=== PATIENT | male | born 1935 | race Caucasian/White ===

== ENCOUNTER 2017-09-09 14:58 | Emergency (ER) | payer MEDICARE, BC, OTHER ==
[2017-09-09 15:48] LABS: BASO % 0.4 % (0-6); EOS % 1.4 % (0-6); GRAN % 70.1 % (47-80); HEMATOCRIT 46.6 % (42.0-52.0); HEMOGLOBIN 15.4 gm/dl (14.0-18.0); LYMPH % 19.1 % (16-45); MEAN CELL VOLUME 89.8 fl (81-97); MEAN CORPUSCULAR HEMOGLOBIN 29.7 pg (27-33); MEAN PLATELET VOLUME 9.8 fl (7.4-10.4); PLATELET COUNT 221 K/uL (130-400); RED BLOOD COUNT 5.19 M/uL (4.40-5.70); RED CELL DISTRIBUTION WIDTH 14.2 % (11.5-14.5); WHITE BLOOD COUNT W/O DIFF 7.4 K/uL (4.2-12.2)
[2017-09-09 16:09] LABS: ALBUMIN 3.8 g/dL (4.0-5.0); ALKALINE PHOSPHATASE 56 U/L (40-129); ALT/SGPT 15 U/L (<41); AST/SGOT 17 U/L (10.0-50.0); BLOOD UREA NITROGEN 13 mg/dL (8-23); CREATININE 1.4 mg/dL (0.7-1.2); EST GLOMERULAR FILTRATION RATE 52 mL/min; GLUCOSE,RANDOM 97 mg/dL (74-109); LIPASE 66 U/L (13-60); TOTAL PROTEIN 6.9 g/dL (6.6-8.7)
[2017-09-09 16:12] LABS: BILIRUBIN,DIRECT < 0.2 mg/dL (0-0.3)
[2017-09-09 16:47] LABS: URINE APPEARANCE CLEAR; URINE BILIRUBIN NEGATIVE (NEGATIVE); URINE BLOOD NEGATIVE (NEGATIVE); URINE COLOR YELLOW; URINE GLUCOSE (UA) NEGATIVE (NEGATIVE); URINE KETONE NEGATIVE (NEGATIVE); URINE LEUKOCYTE ESTERASE NEGATIVE (NEGATIVE); URINE NITRITE NEGATIVE (NEGATIVE); URINE PROTEIN NEGATIVE (NEGATIVE); URINE UROBILINOGEN 0.2 E.U./dL (0.20 - 1.00)
--- NOTE | 2017-09-09 17:19 | Emergency Department Record ---
History of Present Illness - General Chief Complaint: Abdominal Pain Stated Complaint: LLQ ABDOMINAL PAIN Time Seen by Provider: 09/09/17 15:33 Source: Patient Mode of Arrival: Ambulatory Limitations: No limitations - History of Present Illness Initial Comments: pt has l flank pain and luq pain. it comes and goes. no n/v/d. pt is having hard stools. 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 he is concerned that he might have cancer again or kidney stones. . he states the pain has been coming and going for 6 months but has gotten much worse the last few days. MD Complaint: Abdominal pain, Flank pain Onset/Timin -: Days(s) Location: LLQ Radiation: L flank Severity: Mild Consistency: Intermittent Worsens With: Movement Associated Symptoms: Constipation - Related Data Home Medications Medication Instructions Recorded Confirmed Last Taken Cholecalciferol (Vitamin D3) 5,000 unit PO DAILY 09/09/17 09/09/17 1 Day Ago [Vitamin D3] ~09/08/17 Allergies Allergy/AdvReac Type Severity Reaction Status Date / Time Sulfa (Sulfonamide Allergy Severe ANAPHYLAXIS Verified 09/09/17 15:10 Antibiotics) sulfacetamide Allergy Unknown HIVES Verified 09/09/17 15:10 atorvastatin calcium Allergy PT UNSURE Verified 09/09/17 15:10 [From Lipitor] OF REACTION colesevelam HCl Allergy SWELLING Verified 09/09/17 15:10 [From WelChol] OF THE FACE ezetimibe [From Zetia] Allergy pt unsure Verified 09/09/17 15:10 of reaction fenofibrate nanocrystallized Allergy PT UNSURE Verified 09/09/17 15:10 [From Tricor] OF REACTION fenofibrate,micronized Allergy PT UNSURE Verified 09/09/17 15:10 [From Tricor] OF REACTION gemfibrozil [From Lopid] Allergy PT UNSURE Verified 09/09/17 15:10 OF REACTION Penicillins Allergy HIVES Verified 09/09/17 15:10 Travel Screening - Travel/Exposure Within Last 30 Days Have you traveled within the last 30 days?: No - Travel/Exposure Within Last Year Have you traveled outside the [place] in the last year?: No - Additonal Travel Details Have you been exposed to anyone with a communicable illness?: No - Travel Symptoms Symptom Screening: None Review of Systems Reviewed: No additional complaints except as noted below Constitutional: Reports: As per HPI. Denies: Chills, Fever, Malaise, Night sweats, Weakness, Weight change Eyes: Reports: As per HPI. Denies: Eye discharge, Eye pain, Photophobia, Vision change ENT: Reports: As per HPI. Denies: Congestion, Dental pain, Ear pain, Epistaxis , Hearing loss, Throat pain Respiratory: Reports: As per HPI. Denies: Cough, Dyspnea, Hemoptysis, Stridor, Wheezes Cardiovascular: Reports: As per HPI. Denies: Arrhythmia, Chest pain, Dyspnea on exertion, Edema, Murmurs, Orthopnea, Palpitations, Paroxysmal nocturnal dyspnea, Rheumatic Fever, Syncope Endocrine: Reports: As per HPI. Denies: Fatigue, Heat or cold intolerance, Polydipsia, Polyuria Gastrointestinal: Reports: As per HPI. Denies: Abdominal pain, Constipation, Diarrhea, Hematemesis, Hematochezia, Melena, Nausea, Vomiting Genitourinary: Reports: As per HPI. Denies: Dysuria, Frequency, Hematuria, Incontinence, Retention, Testicular pain, Testicular mass, Urgency Musculoskeletal: Reports: As per HPI. Denies: Arthralgia, Back pain, Gout, Joint swelling, Myalgia, Neck pain Skin: Reports: As per HPI. Denies: Bruising, Change in color, Change in hair/ nails, Lesions, Pruritus, Rash Neurological: Reports: As per HPI. Denies: Abnormal gait, Confusion, Headache, Numbness, Paresthesias, Seizure, Tingling, Tremors, Vertigo, Weakness Psychiatric: Reports: As per HPI. Denies: Anxiety, Auditory hallucinations, Depression, Homicidal thoughts, Suicidal thoughts, Visual hallucinations Hematological/Lymphatic: Reports: As per HPI. Denies: Anemia, Blood Clots, Easy bleeding, Easy bruising, Swollen glands Past Medical History - SOCIAL HISTORY Smoking Status: Former smoker Alcohol Use: None Drug Use: None - RESPIRATORY Hx Respiratory Disorders: No - CARDIOVASCULAR Hx Cardio Disorders: Yes Hx Cardiac Cath: Yes (3 stents) Hx Heart Attack: Yes Hx Hypertension: Yes Hx Coronary Stent: Yes - NEURO Hx Neuro Disorders: No - GI Hx GI Disorders: Yes Hx of Polyps: Yes - Hx Genitourinary Disorders: Yes Hx Prostate Problems: Yes (BPH) Hx Renal Disease: Yes (hx of renal cell carcinoma) - ENDOCRINE Hx Endocrine Disorders: No - MUSCULOSKELETAL Hx Musculoskeletal Disorders: No - PSYCH Hx Psych Problems: No - HEMATOLOGY/ONCOLOGY Hx Hematology/Oncology Disorders: Yes Hx Cancer: Yes (Renal cell carcinoma) Family Medical History Any Significant Family History?: Yes Physical Exam - General General Appearance: Alert, Oriented x3, Cooperative, Mild distress - Head Head exam: Normal inspection - Eye Eye exam: Normal appearance, PERRL, EOMI Pupils: Normal accommodation - ENT ENT exam: Normal exam, Mucous membranes moist, Normal external ear exam, Normal orophraynx Ear exam: Normal external inspection. negative: External canal tenderness Nasal Exam: Normal inspection. negative: Discharge, Sinus tenderness Mouth exam: Normal external inspection, Tongue normal Teeth exam: Normal inspection. negative: Dental caries Throat exam: Normal inspection. negative: Tonsillar erythema, Tonsillar exudate - Neck Neck exam: Normal inspection, Full ROM. negative: Tenderness - Respiratory Respiratory exam: Normal lung sounds bilaterally. negative: Respiratory distress - Cardiovascular Cardiovascular Exam: Regular rate, Normal rhythm, Normal heart sounds - GI/Abdominal GI/Abdominal exam: Soft, Normal bowel sounds, Tenderness - Rectal Rectal exam: Deferred - exam: Deferred - Extremities Extremities exam: Normal inspection, Full ROM, Normal capillary refill. negative: Tenderness - Back Back exam: Reports: Normal inspection, CVA tenderness (L), Full ROM. Denies: Muscle spasm, Rash noted, Tenderness - Neurological Neurological exam: Alert, CN II-XII intact, Normal gait, Oriented X3 - Psychiatric Psychiatric exam: Normal affect, Normal mood - Skin Skin exam: Dry, Intact, Normal color, Warm Course Vital Signs 09/09/17 09/09/17 14:59 17:09 Temperature 97.8 F Pulse Rate 92 H Pulse Rate [ 76 Pulse Ox Probe] Respiratory 16 16 Rate Blood Pressure 143/90 Blood Pressure 130/86 [Left Arm] Pulse Ox 98 97 - Reevaluation(s) Reevaluation #1: 09/09/17 17:19 pts pain is improved Medical Decision Making - Lab Data Result diagrams: 09/09/17 15:42 09/09/17 15:42 Lab Results 09/09/17 09/09/17 09/09/17 Range/Units 15:42 15:42 16:35 WBC 7.4 (4.2-12.2) K/uL RBC 5.19 (4.40-5.70) M/uL Hgb 15.4 (14.0-18.0) gm/dl Hct 46.6 (42.0-52.0) % MCV 89.8 (81-97) fl MCH 29.7 (27-33) pg MCHC 33.0 (32-36) g/dl RDW 14.2 (11.5-14.5) % Plt Count 221 (130-400) K/uL MPV 9.8 (7.4-10.4) fl Gran % 70.1 (47-80) % Lymphocytes % 19.1 (16-45) % Monocytes % 9.0 (0-9) % Eosinophils % 1.4 (0-6) % Basophils % 0.4 (0-6) % Sodium 139 (136-145) mmol/L Potassium 4.1 (3.4-4.5) mmol/L Chloride 102 (98-107) mmol/L Carbon Dioxide 24.0 (22-29) mmol/L Anion Gap 13.0 (7-16) BUN 13 (8-23) mg/dL Creatinine 1.4 H (0.7-1.2) mg/dL Estimated GFR 52 mL/min Random Glucose 97 (74-109) mg/dL Calcium 9.1 (8.8-10.2) mg/dL Total Bilirubin 0.40 (0.2-1.0) mg/dL Direct Bilirubin < 0.2 (0-0.3) mg/dL AST 17 (10.0-50.0) U/L ALT 15 (<41) U/L Alkaline Phosphatase 56 (40-129) U/L Total Protein 6.9 (6.6-8.7) g/dL Albumin 3.8 L (4.0-5.0) g/dL Lipase 66 H (13-60) U/L Urine Color Yellow Urine Appearance Clear Urine pH 6.0 (5.0-8.0) Ur Specific [place] 1.010 (1.002-1.030) Urine Protein Negative (NEGATIVE) Urine Glucose (UA) Negative (NEGATIVE) Urine Ketones Negative (NEGATIVE) Urine Blood Negative (NEGATIVE) Urine Nitrite Negative (NEGATIVE) Urine Bilirubin Negative (NEGATIVE) Urine Urobilinogen 0.2 (0.20 - 1.00) E.U./dL Ur Leukocyte Esterase Negative (NEGATIVE) Disposition Disposition: Discharge Clinical Impression: Left flank pain, LUQ abdominal pain, Renal insufficiency Constipation Qualifiers: Constipation type: unspecified constipation type Qualified Code(s): K59.00 - Constipation, unspecified Disposition: Home, Self-Care Condition: (1) Good Instructions: Abdominal Pain (ED), Constipation (ED) Additional Instructions: follow up with family doctor. return sooner if worse Quality - Quality Measures Quality Measures: N/A - Blood Pressure Screening Does Patient Have Any of the Following: No Blood Pressure Classification: Hypertensive Reading Systolic Measurement: 143 Diastolic Measurement: 90 Screening for High Blood Pressure: < Pre-Hypertensive BP, F/U Documented > [ G8950] Pre-Hypertensive Follow-up Interventions: Follow-up with rescreen every year.
--- NOTE | 2017-09-11 07:34 | CT SCAN REPORT ---
DATE: 09/09/2017 at 1614. EXAM: CT OF THE ABDOMEN AND PELVIS WITHOUT CONTRAST. HISTORY: Left lower quadrant pain with constipation for one year. Right renal cell carcinoma history. TECHNIQUE: Helical CT examination of the abdomen and pelvis is performed without oral or intravenous contrast administration. Lack of oral and intravenous contrast utilization limits evaluation of the bowel and solid viscera, respectively. COMPARISON: CT of the abdomen and pelvis without contrast dated 06/02/2015. FINDINGS: There is minor dependent atelectasis in each lung base appearing to be superimposed on mild, chronic interstitial change. No pleural or pericardial effusion. There is a small nodule redemonstrated in the lateral right lower lobe as seen on image 3 of 126. This measures approximately 2.0 mm. Its stability is consistent with a benign postinflammatory nodule. There is a small focus of bronchiectasis also demonstrated in the lateral right lower lobe, stable. The heart is not enlarged. There is coronary artery calcification, and there is calcification of the aortic valve, moderate to severe in degree. There is a small hypodense mass within the central medial segment of the left liver lobe measuring 6.0 mm. This has not significantly changed consistent with a benign cyst or hemangioma. No new focal hepatic lesion is seen. The spleen, pancreas, and adrenal glands are normal in appearance. A small amount of soft tissue density and calcification versus surgical clips are noted just inferior to the right adrenal gland in the right renal fossa post nephrectomy. This pattern, given differences in technique, does not appear significantly changed and likely relates to scarring. No nephrolithiasis nor left renal mass is seen. No obstructive uropathy. The gallbladder is surgically absent, and no biliary ductal dilatation is seen. A small, sliding-type hiatal hernia is suspected. No intraabdominal nor retroperitoneal lymphadenopathy. There is mild, diffuse atherosclerosis of the abdominal aorta. There are short contiguous segments of mild ectasia of the infrarenal abdominal aorta. These measure approximately 2.1 cm and 1.9 cm in diameter, respectively. No hanna aneurysm is, however, seen. There is marked enlargement of the prostate gland measuring 6.8 cm craniocaudad x 5.8 cm AP x 6.8 cm transverse. This causes elevation of the bladder floor. There are small cellules/diverticula arising from the superior aspect of the urinary bladder. This may relate to bladder outlet obstruction. No pelvic mass or lymphadenopathy is seen. No gross bowel dilatation nor bowel wall thickening. The appendix is visualized and is normal in appearance. No acute abnormality suggested in the left lower quadrant. No lytic or blastic bone lesion. IMPRESSION: 1. STATUS POST RIGHT NEPHRECTOMY. A SMALL AMOUNT OF SCARRING IN THE RIGHT RENAL FOSSA DOES NOT APPEAR SIGNIFICANTLY CHANGED SINCE 06/07/2015. 2. STABLE CYST OR HEMANGIOMA WITHIN THE CENTRAL ASPECT OF THE MEDIAL SEGMENT OF THE LEFT LIVER LOBE. 3. NO NEW INTRA-ABDOMINAL MASS NOR ADENOPATHY. 4. MARKED ENLARGEMENT OF THE PROSTATE GLAND CAUSING ELEVATION OF THE URINARY BLADDER FLOOR. SMALL CELLULES AGAIN NOTED ARISING FROM THE URINARY BLADDER LIKELY RELATING TO BLADDER OUTLET OBSTRUCTION. 5. STABLE NODULE IN THE RIGHT LUNG BASE. 6. MARKED CALCIFICATION OF THE AORTIC VALVE. 7. TWO SHORT SEGMENTS OF MINOR ECTASIA OF THE INFRARENAL ABDOMINAL AORTA, DISCUSSED ABOVE. JOB NUMBER: [id number] MTDD
== END 2017-09-09 17:29 | disposition home or self-care (01) ==
LOC: ER 14:58
DX: R10.32 Left lower quadrant pain (principal); N28.9 Disorder of kidney and ureter, unspecified; K59.00 Constipation, unspecified; I10 Essential (primary) hypertension; I25.2 Old myocardial infarction; Z87.442 Personal history of urinary calculi; Z87.891 Personal history of nicotine dependence; Z85.53 Personal history of malignant neoplasm of renal pelvis; Z95.5 Presence of coronary angioplasty implant and graft
CPT/HCPCS: 74176; 80048; 80076; 81003; 83690; 85025; 99283; 99284

== ENCOUNTER 2018-01-08 20:13 | Emergency (ER) | payer MEDICARE, BC, OTHER ==
[2018-01-08] MEDS ORDERED: NITROGLYCERIN 0.4MG SL TABLET #25 BTL SL PRN (20:40)
[2018-01-08] MEDS ORDERED: ASPIRIN 81 MG CHEWABLE TABLET PO ONE (20:40)
[2018-01-08 20:51] LABS: BASO % 0.4 % (0-6); EOS % 1.4 % (0-6); GRAN % 54.2 % (47-80); HEMATOCRIT 48.2 % (42.0-52.0); HEMOGLOBIN 15.8 gm/dl (14.0-18.0); LYMPH % 33.3 % (16-45); MEAN CELL VOLUME 91.3 fl (81-97); MEAN CORPUSCULAR HEMOGLOBIN 29.9 pg (27-33); MEAN CORPUSCULAR HGB CONC 32.8 g/dl (32-36); MONO % 10.7 % (0-9); PLATELET COUNT 198 K/uL (130-400); RED BLOOD COUNT 5.28 M/uL (4.40-5.70); RED CELL DISTRIBUTION WIDTH 14.8 % (11.5-14.5); WHITE BLOOD COUNT W/O DIFF 8.3 K/uL (4.2-12.2)
--- NOTE | 2018-01-08 20:59 | Emergency Department Record ---
History of Present Illness - General Chief Complaint: Chest Pain Stated Complaint: CHEST PAIN Time Seen by Provider: 01/08/18 20:19 Source: Patient Mode of Arrival: Wheelchair Limitations: No limitations - History of Present Illness Initial Comments: pt developed cp while at computer 20min [employer]. it is better now. he also had pain in l arm and felt sob.. pt has had some pain yesterday. he has cardiac hx but has had no stress or cath in 3 yrs. he has 3 stents Onset/Timin -: Minutes(s) Onset: During rest Pain Location: Left chest Pain Radiation: LUE, Back, Neck Severity scale (1-10): 7 Quality: Other Consistency: Constant Improves With: Rest Anginal Symptoms: Dyspnea Treatments Prior to Arrival: None - Related Data Allergies Allergy/AdvReac Type Severity Reaction Status Date / Time Sulfa (Sulfonamide Allergy Severe ANAPHYLAXIS Verified 01/08/18 20:57 Antibiotics) sulfacetamide Allergy Unknown HIVES Verified 01/08/18 20:57 atorvastatin calcium Allergy PT UNSURE Verified 09/09/17 15:10 [From Lipitor] OF REACTION colesevelam HCl Allergy SWELLING Verified 09/09/17 15:10 [From WelChol] OF THE FACE ezetimibe [From Zetia] Allergy pt unsure Verified 09/09/17 15:10 of reaction fenofibrate nanocrystallized Allergy PT UNSURE Verified 09/09/17 15:10 [From Tricor] OF REACTION fenofibrate,micronized Allergy PT UNSURE Verified 09/09/17 15:10 [From Tricor] OF REACTION gemfibrozil [From Lopid] Allergy PT UNSURE Verified 09/09/17 15:10 OF REACTION Penicillins Allergy HIVES Verified 01/08/18 20:57 Travel Screening - Travel/Exposure Within Last 30 Days Have you traveled within the last 30 days?: No - Travel Symptoms Symptom Screening: None Review of Systems Reviewed: No additional complaints except as noted below Constitutional: Reports: As per HPI. Denies: Chills, Fever, Malaise, Night sweats, Weakness, Weight change Eyes: Reports: As per HPI. Denies: Eye discharge, Eye pain, Photophobia, Vision change ENT: Reports: As per HPI. Denies: Congestion, Dental pain, Ear pain, Epistaxis , Hearing loss, Throat pain Respiratory: Reports: As per HPI. Denies: Cough, Dyspnea, Hemoptysis, Stridor, Wheezes Cardiovascular: Reports: As per HPI, Chest pain. Denies: Arrhythmia, Dyspnea on exertion, Edema, Murmurs, Orthopnea, Palpitations, Paroxysmal nocturnal dyspnea, Rheumatic Fever, Syncope Endocrine: Reports: As per HPI. Denies: Fatigue, Heat or cold intolerance, Polydipsia, Polyuria Gastrointestinal: Reports: As per HPI. Denies: Abdominal pain, Constipation, Diarrhea, Hematemesis, Hematochezia, Melena, Nausea, Vomiting Genitourinary: Reports: As per HPI. Denies: Dysuria, Frequency, Hematuria, Incontinence, Retention, Testicular pain, Testicular mass, Urgency Musculoskeletal: Reports: As per HPI. Denies: Arthralgia, Back pain, Gout, Joint swelling, Myalgia, Neck pain Skin: Reports: As per HPI. Denies: Bruising, Change in color, Change in hair/ nails, Lesions, Pruritus, Rash Neurological: Reports: As per HPI. Denies: Abnormal gait, Confusion, Headache, Numbness, Paresthesias, Seizure, Tingling, Tremors, Vertigo, Weakness Psychiatric: Reports: As per HPI. Denies: Anxiety, Auditory hallucinations, Depression, Homicidal thoughts, Suicidal thoughts, Visual hallucinations Hematological/Lymphatic: Reports: As per HPI. Denies: Anemia, Blood Clots, Easy bleeding, Easy bruising, Swollen glands Past Medical History - SOCIAL HISTORY Smoking Status: Former smoker - RESPIRATORY Hx Respiratory Disorders: No - CARDIOVASCULAR Hx Cardio Disorders: Yes Hx Cardiac Cath: Yes (3 stents) Hx Heart Attack: Yes Hx Hypertension: Yes Hx Coronary Stent: Yes - NEURO Hx Neuro Disorders: No - GI Hx GI Disorders: Yes Hx of Polyps: Yes - Hx Genitourinary Disorders: Yes Hx Prostate Problems: Yes (BPH) Hx Renal Disease: Yes (hx of renal cell carcinoma) - ENDOCRINE Hx Endocrine Disorders: No - MUSCULOSKELETAL Hx Musculoskeletal Disorders: No - PSYCH Hx Psych Problems: No - HEMATOLOGY/ONCOLOGY Hx Hematology/Oncology Disorders: Yes Hx Cancer: Yes (Renal cell carcinoma) Family Medical History Any Significant Family History?: Yes Family Hx Comment (NOT TO BE USED IN PLACE OF ITEMS BELOW): not in touch with family -from young age Hx Cancer: Father Hx Dementia: Mother Hx Heart Disease: Father Physical Exam - General General Appearance: Alert, Oriented x3, Cooperative, No acute distress - Head Head exam: Normal inspection - Eye Eye exam: Normal appearance, PERRL, EOMI Pupils: Normal accommodation - ENT ENT exam: Normal exam, Mucous membranes moist, Normal external ear exam, Normal orophraynx Ear exam: Normal external inspection. negative: External canal tenderness Nasal Exam: Normal inspection. negative: Discharge, Sinus tenderness Mouth exam: Normal external inspection, Tongue normal Teeth exam: Normal inspection. negative: Dental caries Throat exam: Normal inspection. negative: Tonsillar erythema, Tonsillar exudate - Neck Neck exam: Normal inspection, Full ROM. negative: Tenderness - Respiratory Respiratory exam: Normal lung sounds bilaterally. negative: Respiratory distress - Cardiovascular Cardiovascular Exam: Regular rate, Normal rhythm, Normal heart sounds - GI/Abdominal GI/Abdominal exam: Soft, Normal bowel sounds. negative: Tenderness - Rectal Rectal exam: Deferred - exam: Deferred - Extremities Extremities exam: Normal inspection, Full ROM, Normal capillary refill. negative: Tenderness - Back Back exam: Reports: Normal inspection, Full ROM. Denies: Muscle spasm, Rash noted, Tenderness - Neurological Neurological exam: Alert, CN II-XII intact, Normal gait, Oriented X3 - Psychiatric Psychiatric exam: Normal affect, Normal mood - Skin Skin exam: Dry, Intact, Normal color, Warm Course Vital Signs 01/08/18 01/08/18 20:17 20:20 Temperature 97.6 F Pulse Rate [ 77 Pulse Ox Probe] Respiratory 24 Rate Blood Pressure 160/79 [Left Arm] Pulse Ox 98 Medical Decision Making - Lab Data Result diagrams: 01/08/18 20:17 01/08/18 20:17 Disposition Disposition: Transfer Clinical Impression: Chest pain due to CAD Disposition: Acute Care [facility] Transfer Transfer To: [facility] Reason For Transfer: needs director writing Accepting Physician: dr núñez Time Discussed w/Accepting Physician: 22:43 Quality - Quality Measures Quality Measures: N/A - Blood Pressure Screening Does Patient Have Any of the Following: No Blood Pressure Classification: Pre-Hypertensive BP Reading Systolic Measurement: 126 Diastolic Measurement: 65 Screening for High Blood Pressure: < Pre-Hypertensive BP, F/U Documented > [ G8950] Pre-Hypertensive Follow-up Interventions: Follow-up with rescreen every year.
[2018-01-08 21:08] LABS: BLOOD UREA NITROGEN 14 mg/dL (8-23); CREATININE 1.2 mg/dL (0.7-1.2); EST GLOMERULAR FILTRATION RATE > 60 mL/min
[2018-01-08 21:11] LABS: GLUCOSE,RANDOM 87 mg/dL (74-109)
[2018-01-08 21:14] LABS: CREATINE PHOSPHOKINASE 85 U/L (39-308)
[2018-01-08 21:16] LABS: CKMB 2.1 ng/mL (<6.73)
[2018-01-08] MEDS ORDERED: HEPARIN SODIUM 1000 UNIT/1 ML 10ML VIAL IVP ONE (22:42)
[2018-01-08] MEDS ORDERED: HEPARIN SODIUM/D5W 25,000 UNITS/500 ML BAG IV SCH ×2 (22:45→23:00)
--- NOTE | 2018-01-10 19:09 | RADIOLOGY REPORT ---
EXAM: CHEST 2 VIEWS HISTORY: DIFFICULTY BREATHING. TECHNIQUE: Frontal and lateral views of the chest. COMPARISON: 12/24/16 chest. FINDINGS: The heart size is normal. Atheromatous change thoracic aorta. Osteopenia. Lungs are clear. No pneumothorax. IMPRESSION: NO ACUTE CARDIOPULMONARY PROCESS. JOB NUMBER: [id number] MTDD
== END 2018-01-08 23:57 | disposition short-term general hospital (02) ==
LOC: ER 20:13
DX: R07.89 Other chest pain (principal); M79.602 Pain in left arm; R06.02 Shortness of breath; R79.89 Other specified abnormal findings of blood chemistry; I25.10 Atherosclerotic heart disease of native coronary artery without angina pectoris; I10 Essential (primary) hypertension; Z85.528 Personal history of other malignant neoplasm of kidney; Z87.891 Personal history of nicotine dependence; Z95.5 Presence of coronary angioplasty implant and graft
CPT/HCPCS: 71046; 80048; 82550; 82553; 83880; 84484; 85025; 85379; 93005; 93010; 96374; 96375; 99285

== ENCOUNTER 2018-04-23 07:20 | Emergency (ER) | payer MEDICARE, BC, OTHER ==
[2018-04-23 07:28] LABS: BASO % 0.6 % (0-6); EOS % 1.3 % (0-6); GRAN % 53.7 % (47-80); HEMATOCRIT 37.3 % (42.0-52.0); HEMOGLOBIN 11.2 gm/dl (14.0-18.0); MEAN CORPUSCULAR HEMOGLOBIN 25.2 pg (27-33); MEAN PLATELET VOLUME 8.8 fl (7.4-10.4); MONO % 7.4 % (0-9); PLATELET COUNT 563 K/uL (130-400); RED BLOOD COUNT 4.44 M/uL (4.40-5.70); RED CELL DISTRIBUTION WIDTH 17.3 % (11.5-14.5); WHITE BLOOD COUNT W/O DIFF 9.8 K/uL (4.2-12.2)
--- NOTE | 2018-04-23 07:33 | Emergency Department Record ---
History of Present Illness - General Chief Complaint: Fall Injury Stated Complaint: FALL Time Seen by Provider: 04/23/18 07:22 Source: Patient Mode of Arrival: EMS Limitations: No limitations - History of Present Illness Initial Comments: The patient fell in his garage about an hour ago. He may have slipped and tripped on one step. He did hit the R side of his forehead on an object and sustain a minor abrasion. The patient denies any VENCES or neck or back pain but is having R rib pain. There was no reported LOC but the patient is not exactly sure why he fell. 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 Complaint: Fall Onset/Timin -: Minutes(s) Fall From: Standing - Related Data Allergies Allergy/AdvReac Type Severity Reaction Status Date / Time Sulfa (Sulfonamide Allergy Severe ANAPHYLAXIS Verified 04/23/18 08:26 Antibiotics) sulfacetamide Allergy Unknown HIVES Verified 04/23/18 08:26 atorvastatin calcium Allergy PT UNSURE Verified 04/23/18 08:26 [From Lipitor] OF REACTION colesevelam HCl Allergy SWELLING Verified 04/23/18 08:26 [From WelChol] OF THE FACE ezetimibe [From Zetia] Allergy pt unsure Verified 04/23/18 08:26 of reaction fenofibrate nanocrystallized Allergy PT UNSURE Verified 04/23/18 08:26 [From Tricor] OF REACTION fenofibrate,micronized Allergy PT UNSURE Verified 04/23/18 08:26 [From Tricor] OF REACTION gemfibrozil [From Lopid] Allergy PT UNSURE Verified 04/23/18 08:26 OF REACTION Penicillins Allergy HIVES Verified 04/23/18 08:26 Review of Systems Constitutional: Denies: Chills, Fever Eyes: Denies: Eye discharge ENT: Denies: Congestion Respiratory: Denies: Cough Cardiovascular: Denies: Arrhythmia, Chest pain Endocrine: Denies: Fatigue Gastrointestinal: Denies: Abdominal pain Genitourinary: Denies: Dysuria Musculoskeletal: Denies: Back pain Past Medical History - SOCIAL HISTORY Smoking Status: Former smoker - RESPIRATORY Hx Respiratory Disorders: No - CARDIOVASCULAR Hx Cardio Disorders: Yes Hx Cardiac Cath: Yes (3 stents) Hx Heart Attack: Yes Hx Hypertension: Yes Hx Coronary Stent: Yes - NEURO Hx Neuro Disorders: No - GI Hx GI Disorders: Yes Hx of Polyps: Yes - Hx Genitourinary Disorders: Yes Hx Prostate Problems: Yes (BPH) Hx Renal Disease: Yes (hx of renal cell carcinoma) - ENDOCRINE Hx Endocrine Disorders: No - MUSCULOSKELETAL Hx Musculoskeletal Disorders: No - PSYCH Hx Psych Problems: No - HEMATOLOGY/ONCOLOGY Hx Hematology/Oncology Disorders: Yes Hx Cancer: Yes (Renal cell carcinoma) Family Medical History Family Hx Comment (NOT TO BE USED IN PLACE OF ITEMS BELOW): not in touch with family -from young age Hx Cancer: Father Hx Dementia: Mother Hx Heart Disease: Father Physical Exam - General General Appearance: Alert, Oriented x3, Cooperative, No acute distress - Head Head exam: Normocephalic. negative: Atraumatic, Normal inspection (There is a small abrasion and contusion to the R superior frontal bone area.) Head exam detail: Abrasion Image of Face/Head: 1 - Area of contustion and abrasion. - Eye Eye exam: Normal appearance, PERRL - Neck Neck exam: Normal inspection, Full ROM. negative: Tenderness - Respiratory Respiratory exam: Normal lung sounds bilaterally, Chest wall tenderness (There is extensive R lateral chest wall tenderness.). negative: Respiratory distress - Cardiovascular Cardiovascular Exam: Regular rate, Normal rhythm, Normal heart sounds - GI/Abdominal GI/Abdominal exam: Soft, Normal bowel sounds. negative: Tenderness - Extremities Extremities exam: Normal inspection, Full ROM (There is normal ROM of the hips with no pain or discomfort.), Normal capillary refill. negative: Joint swelling , Tenderness - Back Back exam: Reports: Normal inspection. Denies: Vertebral tenderness - Neurological Neurological exam: Alert. negative: Motor sensory deficit Course - Reevaluation(s) Reevaluation #1: The patient is doing well. He is still having R rib pain but denies any AP, VENCES or L sided CP. I did discuss the CT results with the patient and the need for admission to [facility] and the patient agrees. 04/23/18 08:50 Reevaluation #2: I did discuss the case with Dr. Vu in the ER at [facility] and he did accept the patient for trauma in an ER to ER transfer. 04/23/18 09:12 Medical Decision Making - Data Complexity MDM Data: Labs Ordered and/or Reviewed, X-Ray Ordered and/or Reviewed, EKG Ordered and/or Reviewed - Lab Data Result diagrams: 04/23/18 07:00 04/23/18 07:00 - EKG Data -: EKG Interpreted by Me EKG: Abnormal EKG (Prolonged QT.) - Radiology Data Radiology results: Report reviewed (Head abd Neck CT: Neg. Chest CT: R lateral 4-9 rib fx's and R posterior mild displaced 4-5 rib fx's.) Disposition Disposition: Transfer Clinical Impression: Ribs, multiple fractures Qualifiers: Encounter type: initial encounter Fracture type: closed Laterality: right Qualified Code(s): S22.41XA - Multiple fractures of ribs, right side, initial encounter for closed fracture Disposition: Acute Care Hospital Transfer Transfer To: [facility] Reason For Transfer: Trauma and Syncope Accepting Physician: Horace Time Discussed w/Accepting Physician: 09:13 Condition: (2) Stable Forms: Patient Portal Access Time of Disposition: 09:13 Quality - Quality Measures Quality Measures: N/A - Blood Pressure Screening View Details: Yes Does Patient Have Any of the Following: No Blood Pressure Classification: Pre-Hypertensive BP Reading Systolic Measurement: 132 Diastolic Measurement: 81 Screening for High Blood Pressure: < Pre-Hypertensive BP, F/U Documented > [ G8950] Pre-Hypertensive Follow-up Interventions: Referral to alternative/primary care provider.
[2018-04-23 07:40] LABS: INR 1.1; PARTIAL THROMBOPLASTIN TIME 33.4 SECONDS (24.5-39.1); PROTHROMBIN TIME (PATIENT) 11.9 SECONDS (9.5-12.1)
[2018-04-23 07:42] LABS: BLOOD UREA NITROGEN 13 mg/dL (8-23); EST GLOMERULAR FILTRATION RATE > 60 mL/min
[2018-04-23 07:45] LABS: GLUCOSE,RANDOM 90 mg/dL (74-109)
[2018-04-23 07:48] LABS: CREATINE PHOSPHOKINASE 79 U/L (39-308)
[2018-04-23] MEDS: Diph,Pert(Acell),Tet Vac 0.5 ML SYR IM ONE (08:28)
[2018-04-23] MEDS: MORPHINE SULFATE 10 MG/ML VIAL IVP ONE ×2 (08:44→10:30)
[2018-04-23] MEDS: ONDANSETRON HCL IV 4 MG/2 ML VIAL IVP ONE (08:44)
[2018-04-23 09:57] LABS: URINE APPEARANCE CLEAR; URINE BILIRUBIN NEGATIVE (NEGATIVE); URINE BLOOD LARGE (NEGATIVE); URINE COLOR YELLOW; URINE GLUCOSE (UA) NEGATIVE (NEGATIVE); URINE KETONE NEGATIVE (NEGATIVE); URINE LEUKOCYTE ESTERASE NEGATIVE (NEGATIVE); URINE NITRITE NEGATIVE (NEGATIVE); URINE PROTEIN NEGATIVE (NEGATIVE); URINE UROBILINOGEN 0.2 E.U./dL (0.20 - 1.00)
[2018-04-23 10:03] LABS: URINE EPITHELIAL CELLS NONE SEEN (FEW); URINE RBC >50 (NONE SEEN); URINE WBC NONE SEEN (0-2/hpf)
[2018-04-23] MEDS: HYDROMORPHONE HCL 2 MG/ML VIAL IVP ONE (10:45)
--- NOTE | 2018-04-26 14:07 | CT SCAN REPORT ---
DATE: 04/23/2018. EXAM: CT OF THE BRAIN WITHOUT CONTRAST. HISTORY: Injury. TECHNIQUE: Sequential axial images were obtained from the foramen magna to the vertex without contrast administration. FINDINGS: The brain volume is normal. No large territorial infarct, hemorrhage , mass effect, or midline shift. No extra-axial fluid collection. There is right frontal soft tissue swelling. No underlying osseous abnormality. IMPRESSION: 1. NO INTRACRANIAL ABNORMALITY. 2. RIGHT FRONTAL SCALP HEMATOMA. 3. NO UNDERLYING OSSEOUS ABNORMALITY. [facility]: [id number] [facility]
--- NOTE | 2018-04-26 14:11 | CT SCAN REPORT ---
DATE: 04/23/2018. EXAM: CT OF THE CERVICAL SPINE WITHOUT CONTRAST. HISTORY: Injury. TECHNIQUE: Sequential axial images were obtained through the cervical spine without intravenous contrast administration. Sagittal and coronal reformatted images were performed. FINDINGS: There is multilevel degenerative change. No evidence of fracture, subluxation, or hypertrophied facet. The lateral masses are well aligned. Prevertebral soft tissues are normal. The airway is patent. IMPRESSION: MULTILEVEL DEGENERATIVE CHANGE. NO EVIDENCE OF FRACTURE, SUBLUXATION, OR HYPERTROPHIED FACET. JOB NUMBER: [id number] [facility]
--- NOTE | 2018-04-26 14:20 | CT SCAN REPORT ---
DATE: 04/23/2018. EXAM: CT OF THE CHEST WITHOUT CONTRAST. HISTORY: Injury. TECHNIQUE: Sequential axial images were obtained from the thoracic inlet through the bilateral adrenal glands without intravenous contrast administration. FINDINGS: Heart size is normal. There is mild pericardial wall thickening. There is atherosclerotic change of the coronary arteries. No mediastinal or hilar lymphadenopathy. Minimal atelectasis in the lower lobes. Small to moderate bilateral pleural effusions. Nondisplaced right lateral second through ninth rib fracture deformities. Nondisplaced right posterior fourth and fifth rib fracture deformities. Atrophy of the right kidney. Surgical removal of the gallbladder. IMPRESSION: 1. MINIMALLY DISPLACED RIGHT LATERAL THIRD THROUGH NINTH RIB FRACTURE DEFORMITIES. 2. MINIMALLY DISPLACED RIGHT POSTERIOR FOURTH AND FIFTH RIB FRACTURE DEFORMITIES. 3. SMALL TO MODERATE BILATERAL PLEURAL EFFUSIONS. NO PNEUMOTHORAX. 4. MILD PERICARDIAL WALL THICKENING. 5. ATROPHY OF THE RIGHT KIDNEY. 6. NOT MENTIONED ABOVE IS A SMALL, SLIDING-TYPE HIATAL HERNIA. [facility]BER: [id number] [facility]
== END 2018-04-23 10:45 | disposition short-term general hospital (02) ==
LOC: ER 07:20
DX: S22.41XA Multiple fractures of ribs, right side, initial encounter for closed fracture (principal); S00.03XA Contusion of scalp, initial encounter; S00.01XA Abrasion of scalp, initial encounter; I10 Essential (primary) hypertension; I25.2 Old myocardial infarction; Z79.01 Long term (current) use of anticoagulants; Z87.891 Personal history of nicotine dependence; F17.220 Nicotine dependence, chewing tobacco, uncomplicated; W01.198A Fall on same level from slipping, tripping and stumbling with subsequent striking against other object, initial encounter; Y92.008 Other place in unspecified non-institutional (private) residence as the place of occurrence of the external cause
CPT/HCPCS: 70450; 71250; 72125; 80048; 81001; 82550; 82553; 84484; 85025; 85610; 85730; 90715; 93005; 93010; 96372; 96374; 96375; 96376; 99285; J2270; J2405

== ENCOUNTER 2018-05-15 20:47 | Emergency (ER) | payer MEDICARE, BC, OTHER ==
[2018-05-15] MEDS ORDERED: LIDOCAINE UROJECT 10 ML APPL MM ONE ×3 (21:02→23:17)
--- NOTE | 2018-05-15 21:04 | Emergency Department Record ---
History of Present Illness - General Chief complaint: Male Urogenital Problem Stated complaint: PLUGGED CATHTER Time Seen by Provider: 05/15/18 20:58 Source: Patient Mode of Arrival: Wheelchair Limitations: No limitations - History of Present Illness Initial comments: The patient is here due to feeling that his Carlson Catheter is not working correctly. He had it placed about 2 weeks ago and now he feels it may be plugged. He denies any AP, nausea, vomiting, or back pain. MD Complaint: Other Onset/Timin -: Awoke with symptoms Radiation: None Severity: Mild Severity scale (1-10): 1 Quality: Burning Consistency: Intermittent Improves with: None Indwelling catheter Reports: Dysuria - Related Data Sexually active: No Allergies Allergy/AdvReac Type Severity Reaction Status Date / Time Sulfa (Sulfonamide Allergy Severe ANAPHYLAXIS Verified 05/15/18 20:52 Antibiotics) sulfacetamide Allergy Unknown HIVES Verified 05/15/18 20:52 atorvastatin calcium Allergy PT UNSURE Verified 05/15/18 20:52 [From Lipitor] OF REACTION colesevelam HCl Allergy SWELLING Verified 05/15/18 20:52 [From WelChol] OF THE FACE ezetimibe [From Zetia] Allergy pt unsure Verified 05/15/18 20:52 of reaction fenofibrate nanocrystallized Allergy PT UNSURE Verified 05/15/18 20:52 [From Tricor] OF REACTION fenofibrate,micronized Allergy PT UNSURE Verified 05/15/18 20:52 [From Tricor] OF REACTION gemfibrozil [From Lopid] Allergy PT UNSURE Verified 05/15/18 20:52 OF REACTION Penicillins Allergy HIVES Verified 05/15/18 20:52 Travel Screening - Travel/Exposure Within Last 30 Days Have you traveled within the last 30 days?: No - Travel/Exposure Within Last Year Have you traveled outside the [place] in the last year?: No - Additonal Travel Details Have you been exposed to anyone with a communicable illness?: No - Travel Symptoms Symptom Screening: None Review of Systems Constitutional: Denies: Chills, Fever Eyes: Denies: Eye discharge ENT: Denies: Congestion Respiratory: Denies: Cough, Dyspnea Past Medical History - SOCIAL HISTORY Smoking Status: Former smoker - RESPIRATORY Hx Respiratory Disorders: No - CARDIOVASCULAR Hx Cardio Disorders: Yes Hx Cardiac Cath: Yes (3 stents) Hx Heart Attack: Yes Hx Hypertension: Yes Hx Coronary Stent: Yes - NEURO Hx Neuro Disorders: No Comment:: Shingles - GI Hx GI Disorders: Yes Hx of Polyps: Yes - Hx Genitourinary Disorders: Yes Hx Prostate Problems: Yes (BPH) Hx Renal Disease: Yes (hx of renal cell carcinoma) - ENDOCRINE Hx Endocrine Disorders: No - MUSCULOSKELETAL Hx Musculoskeletal Disorders: No - PSYCH Hx Psych Problems: No - HEMATOLOGY/ONCOLOGY Hx Hematology/Oncology Disorders: Yes Hx Cancer: Yes (Renal cell carcinoma) Family Medical History Any Significant Family History?: No Family Hx Comment (NOT TO BE USED IN PLACE OF ITEMS BELOW): not in touch with family -from young age Hx Cancer: Father Hx Dementia: Mother Hx Heart Disease: Father Physical Exam - General General Appearance: Alert, Oriented x3, Cooperative, No acute distress - Head Head exam: Atraumatic, Normocephalic, Normal inspection - Eye Eye exam: Normal appearance, PERRL - Neck Neck exam: Normal inspection, Full ROM. negative: Tenderness - Respiratory Respiratory exam: Normal lung sounds bilaterally. negative: Respiratory distress - Cardiovascular Cardiovascular Exam: Regular rate, Normal rhythm, Normal heart sounds - GI/Abdominal GI/Abdominal exam: Soft, Normal bowel sounds. negative: Distended, Rebound, Rigid, Tenderness - exam: Circumcision, Normal inspection Course Vital Signs 05/15/18 20:54 Temperature 98.4 F Pulse Rate [ 101 H Pulse Ox Probe] Respiratory 18 Rate Blood Pressure 146/79 [Left Arm] Pulse Ox 99 - Reevaluation(s) Reevaluation #1: The catheter was flushed and appears to be working correctly. The patient was encouraged to see his Urologist as planned. 05/15/18 21:13 Reevaluation #2: At discharge the catheter seemed to become plugged. We then did attempt to change it but developed some bleeding. After consultation with his Urologist adult education teacher Dr. Burnett I did place a 16 Coude Catheter with correct placement and good urine drainage. He is to continue the previous plan. 05/15/18 22:40 Medical Decision Making - Lab Data Result diagrams: 05/15/18 22:05 05/15/18 22:05 Disposition Disposition: Discharge Clinical Impression: Carlson catheter problem Qualifiers: Encounter type: initial encounter Qualified Code(s): T83.9XXA - Unspecified complication of genitourinary prosthetic device, implant and graft, initial encounter Disposition: Home, Self-Care Condition: (2) Stable Instructions: Carlson Catheter Placement and Care (ED) Additional Instructions: Please continue your previous instructions as to the catheter. Return to the ER for any problems. Forms: Patient Portal Access Time of Disposition: 21:15 Quality - Quality Measures Quality Measures: N/A - Blood Pressure Screening View Details: Yes Does Patient Have Any of the Following: No Blood Pressure Classification: Pre-Hypertensive BP Reading Systolic Measurement: 124 Diastolic Measurement: 71 Screening for High Blood Pressure: < Pre-Hypertensive BP, F/U Documented > [ G8950] Pre-Hypertensive Follow-up Interventions: Referral to alternative/primary care provider.
[2018-05-15 22:23] LABS: BASO % 0.4 % (0-6); EOS % 2.4 % (0-6); GRAN % 66.3 % (47-80); HEMATOCRIT 31.3 % (42.0-52.0); LYMPH % 21.2 % (16-45); MEAN CELL VOLUME 83.7 fl (81-97); MEAN CORPUSCULAR HGB CONC 28.8 g/dl (32-36); MEAN PLATELET VOLUME 8.5 fl (7.4-10.4); MONO % 9.7 % (0-9); PLATELET COUNT 529 K/uL (130-400); RED BLOOD COUNT 3.74 M/uL (4.40-5.70); RED CELL DISTRIBUTION WIDTH 18.5 % (11.5-14.5); WHITE BLOOD COUNT W/O DIFF 7.2 K/uL (4.2-12.2)
[2018-05-15 22:40] LABS: INR 1.4; PARTIAL THROMBOPLASTIN TIME 43.9 SECONDS (24.5-39.1); PROTHROMBIN TIME (PATIENT) 15.6 SECONDS (9.5-12.1)
[2018-05-15 23:02] LABS: BLOOD UREA NITROGEN 14 mg/dL (8-23); EST GLOMERULAR FILTRATION RATE > 60 mL/min; GLUCOSE,RANDOM 99 mg/dL (74-109)
== END 2018-05-15 22:45 | disposition home or self-care (01) ==
LOC: ER 20:47
DX: T83.098A Other mechanical complication of other urinary catheter, initial encounter (principal); R30.0 Dysuria; Y73.8 Miscellaneous gastroenterology and urology devices associated with adverse incidents, not elsewhere classified; I25.2 Old myocardial infarction; I10 Essential (primary) hypertension; Z87.891 Personal history of nicotine dependence
CPT/HCPCS: 51702; 80048; 85025; 85610; 85730; 99283; 99284

== ENCOUNTER 2018-06-05 09:31 | Emergency (ER) | payer MEDICARE, BC, OTHER ==
--- NOTE | 2018-06-05 09:55 | Emergency Department Record ---
History of Present Illness - General Chief complaint: Fatigue and Weakness Stated complaint: WEAKNESS/VOMITING Time Seen by Provider: 06/05/18 09:55 Source: Patient Mode of Arrival: Wheelchair Limitations: No limitations - History of Present Illness Initial comments: Pt to ED with complaint of genralized weakness and nausea. Pt with aortic valve replacement (pig) January of 2018 at [facility], then fall trauma at home with 6 ribs fx on right late March 2018. Had gonzalez cath in place for 40 days after trauma and it was removed 2 days ago. Was voiding post removal fine per pt but yesterday began to have difficult and "burning" when attempted to urinate. At office today while waiting to be see "I think I peed a gallon". Complaint: Generalized weakness Onset/Timin -: Days(s) Location: Generalized Severity: Moderate Severity scale (1-10): 4 Consistency: Constant Worsens with: None - [place] Coma Scale Eye Response: (4) Open spontaneously Motor Response: (6) Obeys commands Verbal Response: (5) Oriented [place] Total: 15 - Related Data Previous Rx's Medication Instructions Recorded Ciprofloxacin HCl [Cipro] 500 mg PO Q12HR 7 Days #14 tablet 06/05/18 Allergies Allergy/AdvReac Type Severity Reaction Status Date / Time Sulfa (Sulfonamide Allergy Severe ANAPHYLAXIS Unverified 05/20/18 14:01 Antibiotics) sulfacetamide Allergy Unknown HIVES Unverified 05/20/18 14:01 atorvastatin calcium Allergy PT UNSURE Unverified 05/20/18 14:01 [From Lipitor] OF REACTION colesevelam HCl Allergy SWELLING Unverified 05/20/18 14:01 [From WelChol] OF THE FACE ezetimibe [From Zetia] Allergy pt unsure Unverified 05/20/18 14:01 of reaction fenofibrate nanocrystallized Allergy PT UNSURE Unverified 05/20/18 14:01 [From Tricor] OF REACTION fenofibrate,micronized Allergy PT UNSURE Unverified 05/20/18 14:01 [From Tricor] OF REACTION gemfibrozil [From Lopid] Allergy PT UNSURE Unverified 05/20/18 14:01 OF REACTION Penicillins Allergy HIVES Unverified 05/20/18 14:01 Travel Screening - Travel/Exposure Within Last 30 Days Have you traveled within the last 30 days?: No - Travel/Exposure Within Last Year Have you traveled outside the [place] in the last year?: No - Additonal Travel Details Have you been exposed to anyone with a communicable illness?: No Review of Systems Constitutional: Reports: Weakness. Denies: Chills, Fever, Night sweats Eyes: Denies: Photophobia, Vision change ENT: Denies: Congestion, Ear pain Respiratory: Denies: Cough, Dyspnea Cardiovascular: Denies: Arrhythmia, Chest pain, Palpitations, Syncope Endocrine: Reports: Fatigue Gastrointestinal: Reports: Abdominal pain (suprapubic), Nausea. Denies: Diarrhea Genitourinary: Reports: Dysuria, Retention Musculoskeletal: Denies: Arthralgia, Joint swelling Skin: Denies: Bruising Neurological: Denies: Abnormal gait, Headache, Tremors Psychiatric: Denies: Anxiety Past Medical History - SOCIAL HISTORY Smoking Status: Former smoker Alcohol Use: None Drug Use: None - RESPIRATORY Hx Respiratory Disorders: No - CARDIOVASCULAR Hx Cardio Disorders: Yes Hx Cardiac Cath: Yes (3 stents) Hx Heart Attack: Yes Hx Hypertension: Yes Hx Coronary Stent: Yes - NEURO Hx Neuro Disorders: No Comment:: Shingles - GI Hx GI Disorders: Yes Hx of Polyps: Yes - Hx Genitourinary Disorders: Yes Hx Prostate Problems: Yes (BPH) Hx Renal Disease: Yes (hx of renal cell carcinoma) - ENDOCRINE Hx Endocrine Disorders: No - MUSCULOSKELETAL Hx Musculoskeletal Disorders: No - PSYCH Hx Psych Problems: No - HEMATOLOGY/ONCOLOGY Hx Hematology/Oncology Disorders: Yes Hx Cancer: Yes (Renal cell carcinoma) Family Medical History Any Significant Family History?: No Family Hx Comment (NOT TO BE USED IN PLACE OF ITEMS BELOW): not in touch with family -from young age Hx Cancer: Father Hx Dementia: Mother Hx Heart Disease: Father Physical Exam - General General Appearance: Alert, Oriented x3, Cooperative - Head Head exam: Atraumatic - Eye Eye exam: PERRL, EOMI - ENT ENT exam: Mucous membranes moist, Normal external ear exam, Normal orophraynx, TM's normal bilaterally - Neck Neck exam: Normal inspection - Respiratory Respiratory exam: Normal lung sounds bilaterally. negative: Rhonchi, Wheezes - Cardiovascular Cardiovascular Exam: Regular rate, Normal rhythm, Normal heart sounds - GI/Abdominal GI/Abdominal exam: Soft, Normal bowel sounds. negative: Guarding, Rebound, Tenderness - Rectal Rectal exam: Deferred - Extremities Extremities exam: Normal inspection, Full ROM. negative: Pedal edema, Tenderness - Back Back exam: Reports: Normal inspection. Denies: CVA tenderness (R), CVA tenderness (L) - Neurological Neurological exam: Alert, CN II-XII intact, Oriented X3 - Psychiatric Psychiatric exam: Normal affect, Normal mood - Skin Skin exam: Normal color Course Vital Signs 06/05/18 09:35 Pulse Rate 87 Respiratory 16 Rate Blood Pressure 142/92 Pulse Ox 100 - Reevaluation(s) Reevaluation #1: 06/05/18 10:30 Bladder scan with ~250cc in bladder. Pt stood and urinated 90cc to urinal. Sent to lab. We will hold cath placement at this time. Will give patinet a chance to try to void again during stay. If unable to empty will consider cath placement. Reevaluation #2: 06/05/18 12:23 Pt resting with at bedside. Has urinated twice since arrival. Will montior to assure he is able to urinate without retention. Procedures - EKG Initial Date: 06/05/18 Time: 10:23 EKG: No Acute Changes (no change from 04-23-18) Medical Decision Making - Lab Data Result diagrams: 06/05/18 10:16 06/05/18 10:16 Disposition Disposition: Discharge Clinical Impression: UTI (urinary tract infection) Disposition: Home, Self-Care Condition: (2) Stable Instructions: Urinary Tract Infection in Men (ED) Prescriptions: Ciprofloxacin HCl [Cipro] 500 mg PO Q12HR 7 Days #14 tablet Forms: Patient Portal Access Quality - Quality Measures Quality Measures: N/A - Blood Pressure Screening Does Patient Have Any of the Following: No Blood Pressure Classification: Hypertensive Reading Systolic Measurement: 142 Diastolic Measurement: 92 Screening for High Blood Pressure: Patient Exclusion, Hx of HTN [G9744]
[2018-06-05] MEDS ORDERED: ONDANSETRON HCL IV 4 MG/2 ML VIAL IVP ONE ×2 (10:06→12:50)
[2018-06-05 10:20] LABS: BASO % 0.2 % (0-6); EOS % 1.1 % (0-6); GRAN % 73.6 % (47-80); HEMATOCRIT 34.8 % (42.0-52.0); HEMOGLOBIN 10.2 gm/dl (14.0-18.0); LYMPH % 16.6 % (16-45); MEAN CELL VOLUME 81.5 fl (81-97); MEAN CORPUSCULAR HGB CONC 29.3 g/dl (32-36); MEAN PLATELET VOLUME 8.3 fl (7.4-10.4); MONO % 8.5 % (0-9); PLATELET COUNT 421 K/uL (130-400); RED BLOOD COUNT 4.27 M/uL (4.40-5.70); RED CELL DISTRIBUTION WIDTH 18.7 % (11.5-14.5)
[2018-06-05 10:21] LABS: URINE APPEARANCE CLEAR; URINE BILIRUBIN NEGATIVE (NEGATIVE); URINE BLOOD SMALL (NEGATIVE); URINE COLOR YELLOW; URINE GLUCOSE (UA) NEGATIVE (NEGATIVE); URINE KETONE NEGATIVE (NEGATIVE); URINE LEUKOCYTE ESTERASE LARGE (NEGATIVE); URINE NITRITE POSITIVE (NEGATIVE); URINE PROTEIN TRACE (NEGATIVE); URINE UROBILINOGEN 0.2 E.U./dL (0.20 - 1.00)
[2018-06-05 10:23] LABS: MEAN CORPUSCULAR HEMOGLOBIN 23.8 pg (27-33)
[2018-06-05 10:32] LABS: URINE BACTERIA 3+; URINE RBC 0 - 2 (NONE SEEN); URINE WBC >50 (0-2/hpf)
[2018-06-05 10:33] LABS: BLOOD UREA NITROGEN 11 mg/dL (8-23); CREATININE 1.1 mg/dL (0.7-1.2); EST GLOMERULAR FILTRATION RATE > 60 mL/min
[2018-06-05 10:36] LABS: GLUCOSE,RANDOM 96 mg/dL (74-109)
[2018-06-05] MEDS ORDERED: CEFTRIAXONE SODIUM 1 GM in 0.9 % SODIUM CHLORIDE 100ML 100 ML IVPB ONE (11:27)
--- NOTE | 2018-06-08 06:08 | RADIOLOGY REPORT ---
DATE: 06/05/2018 at 10:33 a.m. EXAM: TWO-VIEW, CHEST. HISTORY: Weakness and cough. TECHNIQUE: PA and lateral views. COMPARISON: Two-view, chest, dated 04/10/2018. FINDINGS: Postoperative sternotomy as before. There appear to be persistent bibasilar effusions, although probably decreased in size bilaterally compared to the prior study. There now appear to be multiple displaced right right fractures which were not evident previously, and clinical correlation is suggested. No definite pneumothorax seen. Stable heart size. There is probably coronary artery calcification present. Prominent spurring in the spine. In addition to the displaced right rib fractures, there are some relatively nondisplaced fractures as well and bony calluses seen associated with some of these fractures suggesting subacute fractures. With no bony callus about the displaced right-sided rib fractures, their age is more indeterminate, although new since 04/10/2018. IMPRESSION: 1. MULTIPLE NEW RIGHT RIB FRACTURES, SOME OF WHICH ARE DISPLACED AND OTHERS RELATIVELY NONDISPLACED. SOME BONY CALLUS ABOUT THE RELATIVELY NONDISPLACED FRACTURES. THESE ARE ALL NEW COMPARED WITH 04/10 2018. NO DEFINITE PNEUMOTHORAX IDENTIFIED. 2. POSTOPERATIVE STERNOTOMY BEFORE. 3. DECREASE IN BIBASILAR EFFUSION SINCE THE PRIOR STUDY, ALTHOUGH SOME STILL PERSISTS BILATERALLY. 4. PROMINENT SPURRING IN THE SPINE. [facility]: [id number] [facility]
== END 2018-06-05 15:03 | disposition home or self-care (01) ==
LOC: ER 09:31
DX: N39.0 Urinary tract infection, site not specified (principal); R53.1 Weakness; R11.0 Nausea; I10 Essential (primary) hypertension; I25.2 Old myocardial infarction; Z95.2 Presence of prosthetic heart valve; Z87.891 Personal history of nicotine dependence
CPT/HCPCS: 99284 ×2; 96376; 96365; 96375; 85025; 80048; 81001; 71046; 93005; 93010; J2405

== ENCOUNTER 2018-08-12 18:08 | Observation (INO) | payer MEDICARE, BC, OTHER ==
--- NOTE | 2018-08-12 18:35 | Emergency Department Record ---
History of Present Illness - General Chief Complaint: Shortness of breath Stated Complaint: HONORIO Time Seen by Provider: 08/12/18 18:16 Source: Patient Mode of Arrival: Ambulatory Limitations: No limitations - History of Present Illness Initial Comments: The patient is here due to a one day hx of mild SOB. It did develop slowly this AM and has been mild. He also has had mild L shoulder aching. There has been no sweating, nausea, vomiting, or rashes. The patient is concerned he is having an allergix txn to Cipro due to the fact he started it yesterday for a UTI. He has had Cipro in the past also with no significant issues. There also has been no swelling, urticaria, or difficulty swallowing. MD Complaint: Shortness of breath Onset/Timin -: Days(s) Severity: Moderate Severity scale (1-10): 2 - Related Data Allergies Allergy/AdvReac Type Severity Reaction Status Date / Time Sulfa (Sulfonamide Allergy Severe ANAPHYLAXIS Verified 08/12/18 18:16 Antibiotics) sulfacetamide Allergy Unknown HIVES Verified 08/12/18 18:16 atorvastatin calcium Allergy PT UNSURE Verified 08/12/18 18:16 [From Lipitor] OF REACTION colesevelam HCl Allergy SWELLING Verified 08/12/18 18:16 [From WelChol] OF THE FACE ezetimibe [From Zetia] Allergy pt unsure Verified 08/12/18 18:16 of reaction fenofibrate nanocrystallized Allergy PT UNSURE Verified 08/12/18 18:16 [From Tricor] OF REACTION fenofibrate,micronized Allergy PT UNSURE Verified 08/12/18 18:16 [From Tricor] OF REACTION gemfibrozil [From Lopid] Allergy PT UNSURE Verified 08/12/18 18:16 OF REACTION Penicillins Allergy HIVES Verified 08/12/18 18:16 Travel Screening - Travel/Exposure Within Last 30 Days Have you traveled within the last 30 days?: No - Travel/Exposure Within Last Year Have you traveled outside the [place] in the last year?: No - Additonal Travel Details Have you been exposed to anyone with a communicable illness?: No - Travel Symptoms Symptom Screening: None Review of Systems Constitutional: Denies: Chills, Fever Eyes: Denies: Eye discharge ENT: Denies: Congestion Respiratory: Reports: Dyspnea. Denies: Cough, Hemoptysis, Stridor, Wheezes Cardiovascular: Denies: Arrhythmia, Chest pain Endocrine: Denies: Fatigue Gastrointestinal: Denies: Diarrhea, Nausea Genitourinary: Reports: Dysuria Musculoskeletal: Denies: Arthralgia Skin: Denies: Bruising Past Medical History - SOCIAL HISTORY Smoking Status: Former smoker Alcohol Use: None Drug Use: None - RESPIRATORY Hx Respiratory Disorders: No Comment:: fluid removed from lungs after valve surgery - CARDIOVASCULAR Hx Cardio Disorders: Yes Hx Cardiac Cath: Yes (3 stents) Hx Heart Attack: Yes Hx Hypertension: Yes Hx Coronary Stent: Yes Comment:: aortic valve surgery 02/06/18 by [facility] - [facility] Hx Neuro Disorders: No Comment:: Shingles - GI Hx GI Disorders: Yes Hx Reflux: Yes Hx of Polyps: Yes - Hx Genitourinary Disorders: Yes Hx Prostate Problems: Yes (BPH) Hx Renal Disease: Yes (hx of renal cell carcinoma) Comment:: currently being treated with cipro for UTI - ENDOCRINE Hx Endocrine Disorders: No - MUSCULOSKELETAL Hx Musculoskeletal Disorders: No - PSYCH Hx Psych Problems: No - HEMATOLOGY/ONCOLOGY Hx Hematology/Oncology Disorders: Yes Hx Cancer: Yes (Renal cell carcinoma) Family Medical History Any Significant Family History?: Yes Family Hx Comment (NOT TO BE USED IN PLACE OF ITEMS BELOW): not in touch with family -from young age Hx Cancer: Father Hx Dementia: Mother Hx Heart Disease: Father Physical Exam - General General Appearance: Alert, Oriented x3, Cooperative, No acute distress - Head Head exam: Atraumatic, Normocephalic, Normal inspection - Eye Eye exam: Normal appearance, PERRL, EOMI - Neck Neck exam: Normal inspection, Full ROM. negative: Tenderness - Respiratory Respiratory exam: Normal lung sounds bilaterally. negative: Accessory muscle use, Prolonged expiratory, Respiratory distress, Rhonchi, Stridor, Wheezes - Cardiovascular Cardiovascular Exam: Regular rate, Normal rhythm, Normal heart sounds - GI/Abdominal GI/Abdominal exam: Soft, Normal bowel sounds. negative: Tenderness - Extremities Extremities exam: Normal inspection, Full ROM, Normal capillary refill. negative: Tenderness - Back Back exam: Reports: Normal inspection - Neurological Neurological exam: Normal gait, Oriented X3. negative: Abnormal gait, Alert, Motor sensory deficit - Psychiatric Psychiatric exam: negative: Anxious, Depressed Course Vital Signs 08/12/18 18:09 Temperature 97.7 F Pulse Rate 94 H Respiratory 20 Rate Blood Pressure 143/84 Pulse Ox 99 - Reevaluation(s) Reevaluation #1: The patient is doing better at this time and has no pain or HONORIO. I did discuss the lab results to him and the need for admission and he did agree. I also did discuss the case with Naomy ([employer]) and she does accept the admission for Dr. Monge. 08/12/18 19:40 Medical Decision Making - Data Complexity MDM Data: Labs Ordered and/or Reviewed, X-Ray Ordered and/or Reviewed, EKG Ordered and/or Reviewed - Lab Data Result diagrams: 08/12/18 18:35 08/12/18 18:35 - EKG Data -: EKG Interpreted by Me EKG: No Acute Changes, Unchanged From Previous - Radiology Data Radiology results: Report reviewed (CXR: Neg for acute changes.) Disposition Disposition: Admit Clinical Impression: Dyspnea Qualifiers: Dyspnea type: unspecified Qualified Code(s): R06.00 - Dyspnea, unspecified Disposition: Still a Patient at [facility] Decision to Admit: Admit from ER Decision to Admit Date: 08/12/18 Decision to Admit Time: 19:41 Accepting Physician: Saleem Time Discussed w/Accepting Physician: 19:41 Condition: (2) Stable Time of Disposition: 19:41 Quality - Quality Measures Quality Measures: N/A - Blood Pressure Screening View Details: Yes Does Patient Have Any of the Following: Active Dx of HTN Blood Pressure Classification: Pre-Hypertensive BP Reading Systolic Measurement: 143 Diastolic Measurement: 84 Screening for High Blood Pressure: Patient Exclusion, Hx of HTN [G9744]
[2018-08-12 18:44] LABS: URINE APPEARANCE CLOUDY; URINE BILIRUBIN NEGATIVE (NEGATIVE); URINE BLOOD SMALL (NEGATIVE); URINE COLOR YELLOW; URINE GLUCOSE (UA) NEGATIVE (NEGATIVE); URINE KETONE NEGATIVE (NEGATIVE); URINE LEUKOCYTE ESTERASE LARGE (NEGATIVE); URINE NITRITE NEGATIVE (NEGATIVE); URINE PROTEIN NEGATIVE (NEGATIVE); URINE UROBILINOGEN 0.2 E.U./dL (0.20 - 1.00)
[2018-08-12 18:44] LABS: BASO % 0.6 % (0-6); EOS % 3.2 % (0-6); GRAN % 59.6 % (47-80); HEMATOCRIT 37.3 % (42.0-52.0); HEMOGLOBIN 11.2 gm/dl (14.0-18.0); MEAN CELL VOLUME 83.3 fl (81-97); MEAN PLATELET VOLUME 8.9 fl (7.4-10.4); MONO % 12.6 % (0-9); PLATELET COUNT 301 K/uL (130-400); RED BLOOD COUNT 4.48 M/uL (4.40-5.70); RED CELL DISTRIBUTION WIDTH 18.8 % (11.5-14.5); WHITE BLOOD COUNT W/O DIFF 7.2 K/uL (4.2-12.2)
[2018-08-12 18:55] LABS: BLOOD UREA NITROGEN 14 mg/dL (8-23); CREATININE 1.2 mg/dL (0.7-1.2); EST GLOMERULAR FILTRATION RATE > 60 mL/min; INR 1.1; PARTIAL THROMBOPLASTIN TIME 27.9 SECONDS (24.5-39.1)
[2018-08-12 18:56] LABS: URINE BACTERIA NONE SEEN; URINE EPITHELIAL CELLS 0 - 2 (FEW)
[2018-08-12 18:58] LABS: GLUCOSE,RANDOM 126 mg/dL (74-109)
[2018-08-12 19:01] LABS: CREATINE PHOSPHOKINASE 58 U/L (39-308)
[2018-08-12 19:03] LABS: CKMB 1.9 ng/mL (<6.73)
[2018-08-12] MEDS: CEFTRIAXONE SODIUM 1 GM in 0.9 % SODIUM CHLORIDE 100ML 100 ML IVPB ONE (19:20)
[2018-08-12] MEDS: ASPIRIN 325 MG TABLET PO ONE (19:49)
[2018-08-12] MEDS ORDERED: ALBUTEROL HFA 8 GM INHALER INH PRN (22:49)
[2018-08-12] MEDS ORDERED: NITROGLYCERIN 0.4MG SL TABLET #25 BTL SL SCH (22:49)
[2018-08-12] MEDS ORDERED: ACETAMINOPHEN 500 MG TABLET PO PRN (22:49)
[2018-08-12] MEDS: CEFTRIAXONE SODIUM 1 GM in 0.9 % SODIUM CHLORIDE 100ML 100 ML IVPB SCH (22:50)
[2018-08-12] MEDS: TRAMADOL HCL 50 MG TABLET PO PRN (23:48)
[2018-08-12] MEDS: POLYETHYLENE GLY 17 GM PACKET PO SCH (23:51)
[2018-08-12] MEDS: METOPROLOL SUCC 50 MG TABLET PO SCH (23:53)
[2018-08-13 00:45] LABS: CKMB 1.6 ng/mL (<6.73)
[2018-08-13] MEDS: CEFTRIAXONE SODIUM 1 GM in 0.9 % SODIUM CHLORIDE 100ML 100 ML IVPB SCH (06:12)
[2018-08-13 06:57] LABS: HEMATOCRIT 35.4 % (42.0-52.0); HEMOGLOBIN 10.9 gm/dl (14.0-18.0); MEAN CELL VOLUME 83.1 fl (81-97); MEAN CORPUSCULAR HGB CONC 30.8 g/dl (32-36); PLATELET COUNT 283 K/uL (130-400); RED BLOOD COUNT 4.26 M/uL (4.40-5.70); RED CELL DISTRIBUTION WIDTH 18.7 % (11.5-14.5); WHITE BLOOD COUNT W/O DIFF 4.9 K/uL (4.2-12.2)
[2018-08-13 07:10] LABS: ALB/GLOB RATIO 0.9 (1.1-1.8); ALBUMIN 3.3 g/dL (4.0-5.0); ALKALINE PHOSPHATASE 80 U/L (40-129); ALT/SGPT 17 U/L (<41); AST/SGOT 19 U/L (10.0-50.0); BILIRUBIN,TOTAL < 0.20 mg/dL (0.2-1.0); BLOOD UREA NITROGEN 13 mg/dL (8-23); CREATININE 1.2 mg/dL (0.7-1.2); EST GLOMERULAR FILTRATION RATE > 60 mL/min; GLUCOSE,RANDOM 95 mg/dL (74-109); TOTAL PROTEIN 6.9 g/dL (6.6-8.7)
[2018-08-13 07:13] LABS: MEAN CORPUSCULAR HEMOGLOBIN 25.5 pg (27-33)
[2018-08-13 07:20] LABS: PLATELET ESTIMATE NORMAL (NORMAL)
[2018-08-13 07:28] LABS: CKMB 1.7 ng/mL (<6.73)
--- NOTE | 2018-08-13 07:37 | RADIOLOGY REPORT ---
EXAM: CHEST, TWO VIEWS HISTORY: DIFFICULTY IN BREATHING. TECHNIQUE: PA and lateral views of the chest were obtained. Comparison: Two view chest 06/05/18. FINDINGS: The heart size is within normal limits. Postop sternotomy as before. Calcification and mild torsion of the aorta. Multiple right rib fractures again evident with displacement particularly involving the posterior right rib fractures involving the fourth, fifth, sixth, and seventh ribs. Persistent blunting of the right lateral costophrenic angle with some persistent hazy density in the right base. Minor blunting of the left lateral costophrenic angle persists as well. No definite pneumothorax seen. Prominent spurring in the spine. IMPRESSION: 1. POSTOP STERNOTOMY BEFORE. 2. PERSISTENT BIBASILAR CHANGES BEFORE. 3. MULTIPLE RIGHT RIB FRACTURES AGAIN NOTED. NO PNEUMOTHORAX EVIDENT. JOB NUMBER: [id number] [facility]
--- NOTE | 2018-08-13 07:49 | History & Physical ---
History of Present Illness - Date of Service Date of Service for History & Physical: 08/13/18 - History of Present Illness Admitting Diagnosis: 1. Acute Dyspnea History of Present Illness: Mr. Amato is an 82 year-old male who presented to the ED on 08/12 with c/o one-day history of mild shortness of breath. It developed that morning and had been mild. He denies fever, nausea, vomiting, or rash. He was recently diagnosed with a UTI and started cipro on 08/11. He was concerned he was having an allergic rxn to Cipro due to the fact he started it recently for a UTI. He has had Cipro in the past also with no significant issues. He did have a gonzalez catheter during the summer due to There had been no swelling, urticaria, or difficulty swallowing. His history includes: renal carcinoma and right nephrectomy, [place], 3 stents, aortic valve replacement 02/06/18 ([facility]), HTN , GERD, polyps, shingles affecting left eye, and former smoker. In the ED, his vitals were: BP 143/84, HR 94, RR 20, 97.7F, and 99% on room air. UA: small blood, large leuks, WBC- tntc. Hgb 11.2, Hct 37.3, BNP 589.7. EKG: no acute changes, unchanged from previous. Xray: negative for acute changes, did show postop sternotomy, persistent bibasilar changes, multiple right rib fractures- 4-7th, with displacement. He was admitted observation for dyspnea and IV antibiotics for UTI. 08/13/18 0730: Pt. is sitting up in bed. He states that he is eager to go home. He denies shortness of breath and he oxygen saturation is 97% on room air and he has remained on room air throughout the night. He is tolerative his IV rocephin. He denies nausea. He does state that he has been up every 1-2 hours to urinate and that burning pain with urination has improved significantly. Plan to change from rocephin to cefdinir and d/c home this morning. Pt. to f/u with PCP within 3-5 days. PCP: Dr. Monge Urology: (unknown) Cardiology: [facility] GI: Dr. Woodruff Travel Screening - Travel/Exposure Within Last 30 Days Have you traveled within the last 30 days?: No - Travel/Exposure Within Last Year Have you traveled outside the [place] in the last year?: No - Additonal Travel Details Have you been exposed to anyone with a communicable illness?: No - Travel Symptoms Symptom Screening: None Review of Systems Constitutional: Denies: Chills, Fever Eyes: Denies: Eye discharge ENT: Denies: Congestion Respiratory: Reports: Dyspnea. Denies: Cough, Hemoptysis, Stridor, Wheezes Cardiovascular: Denies: Arrhythmia, Chest pain Endocrine: Denies: Fatigue Gastrointestinal: Denies: Diarrhea, Nausea Genitourinary: Reports: Dysuria Musculoskeletal: Denies: Arthralgia Skin: Denies: Bruising Past Medical History - SOCIAL HISTORY Smoking Status: Former smoker Alcohol Use: Rare Drug Use: None - RESPIRATORY Hx Respiratory Disorders: No Comment:: fluid removed from lungs after valve surgery - CARDIOVASCULAR Hx Cardio Disorders: Yes Hx Cardiac Cath: Yes (3 stents) Hx Heart Attack: Yes Hx Hypertension: Yes Hx Coronary Stent: Yes Comment:: aortic valve surgery 02/06/18 by [facility] - [facility] Hx Neuro Disorders: No Comment:: Shingles - GI Hx GI Disorders: Yes Hx Reflux: Yes Hx of Polyps: Yes - Hx Genitourinary Disorders: Yes Hx Prostate Problems: Yes (BPH) Hx Renal Disease: Yes (hx of renal cell carcinoma) Comment:: currently being treated with cipro for UTI - ENDOCRINE Hx Endocrine Disorders: No - MUSCULOSKELETAL Hx Musculoskeletal Disorders: No - PSYCH Hx Psych Problems: No - HEMATOLOGY/ONCOLOGY Hx Hematology/Oncology Disorders: Yes Hx Cancer: Yes (Renal cell carcinoma) Family Medical History Any Significant Family History?: Yes Family Hx Comment (NOT TO BE USED IN PLACE OF ITEMS BELOW): not in touch with family -from young age Hx Cancer: Father Hx Dementia: Mother Hx Heart Disease: Father H&P Meds/Allergies - Allergies Allergies: Allergies Allergy/AdvReac Type Severity Reaction Status Date / Time Sulfa (Sulfonamide Allergy Severe ANAPHYLAXIS Verified 08/12/18 18:16 Antibiotics) sulfacetamide Allergy Unknown HIVES Verified 08/12/18 18:16 atorvastatin calcium Allergy PT UNSURE Verified 08/12/18 18:16 [From Lipitor] OF REACTION colesevelam HCl Allergy SWELLING Verified 08/12/18 18:16 [From WelChol] OF THE FACE ezetimibe [From Zetia] Allergy pt unsure Verified 08/12/18 18:16 of reaction fenofibrate nanocrystallized Allergy PT UNSURE Verified 08/12/18 18:16 [From Tricor] OF REACTION fenofibrate,micronized Allergy PT UNSURE Verified 08/12/18 18:16 [From Tricor] OF REACTION gemfibrozil [From Lopid] Allergy PT UNSURE Verified 08/12/18 18:16 OF REACTION Penicillins Allergy HIVES Verified 08/12/18 18:16 - Active Medications Active Medications: Current Medications Acetaminophen (Tylenol 500mg Tab) 500 mg PO Q6H PRN PRN Reason: PAIN - MILD(1-4)/FEVER Albuterol Sulfate (Ventolin Hfa) 1 - 2 puff INH Q4H PRN PRN Reason: SOB Aspirin (Ecotrin (Ec)) 325 mg PO DAILY [facility] Ceftriaxone Sodium 1 gm/ (Sodium Chloride) 100 mls @ 200 mls/hr IVPB Q12H [facility] Stop: 08/18/18 07:01 Last Infusion: 08/13/18 06:54 Dose: Infused Metoprolol Succinate (Toprol Xl) 50 mg PO DAILY [facility] Last Admin: 08/12/18 23:53 Dose: Not Given Nitroglycerin (Nitrostat 0.4mg) 0.4 mg SL ASDIR [facility] Non-Formulary Medication (Rosuvastatin Calcium [Crestor]) 5 mg PO QD [facility] Non-Formulary Medication (Ubidecarenone [Co Q-10]) 100 mg PO DAILY [facility] Polyethylene Glycol (Miralax) 17 gm PO DAILY [facility] Last Admin: 08/12/18 23:51 Dose: 17 gm Tramadol HCl (Ultram) 50 mg PO BID PRN PRN Reason: PAIN - MODERATE (5-7) Last Admin: 08/12/18 23:48 Dose: 50 mg Physical Exam - Vital Signs Vital Signs: Vital Signs - Last 24 Hrs Temp Pulse Pulse Resp BP BP Pulse Ox 08/13/18 03:58 98.2 F 75 18 112/66 97 08/13/18 00:00 96 H 20 137/73 100 08/12/18 21:00 86 18 08/12/18 20:30 97.9 F 86 18 152/87 86 L 08/12/18 20:10 82 16 135/81 98 08/12/18 19:23 82 16 126/76 99 08/12/18 18:09 97.7 F 94 H 20 143/84 99 - General General Appearance: Alert, Oriented x3, Cooperative, No acute distress Limitations: No limitations - Head Head exam: Atraumatic, Normocephalic, Normal inspection - Eye Eye exam: Normal appearance, PERRL, EOMI - Neck Neck exam: Normal inspection, Full ROM. negative: Tenderness - Respiratory Respiratory exam: Normal lung sounds bilaterally. negative: Accessory muscle use, Prolonged expiratory, Respiratory distress, Rhonchi, Stridor, Wheezes - Cardiovascular Cardiovascular Exam: Regular rate, Normal rhythm, Normal heart sounds - GI/Abdominal GI/Abdominal exam: Soft, Normal bowel sounds. negative: Tenderness - Extremities Extremities exam: Normal inspection, Full ROM, Normal capillary refill. negative: Tenderness - Back Back exam: Reports: Normal inspection - Neurological Neurological exam: Normal gait, Oriented X3. negative: Abnormal gait, Alert, Motor sensory deficit - Psychiatric Psychiatric exam: negative: Anxious, Depressed Results - Labs Result Diagrams: 08/13/18 06:40 08/13/18 06:40 Labs Last 24 Hours: Laboratory Results - last 24 hr 08/12/18 08/12/18 08/12/18 18:35 18:35 18:35 WBC 7.2 RBC 4.48 Hgb 11.2 L Hct 37.3 L MCV 83.3 MCH 25.0 L MCHC 30.0 L RDW 18.8 H Plt Count 301 MPV 8.9 Gran % 59.6 Neutrophils % Lymphocytes % 24.0 Monocytes % 12.6 H Eosinophils % 3.2 Basophils % 0.6 Lymphocytes Monocytes Platelet Estimate RBC Morphology Eosinophil Count PT 11.0 INR 1.1 APTT 27.9 Sodium 138 Potassium 4.8 H Chloride 100 Carbon Dioxide 27.0 Anion Gap 11.0 BUN 14 Creatinine 1.2 Estimated GFR > 60 Random Glucose 126 H Calcium 8.9 Total Bilirubin AST ALT Alkaline Phosphatase Creatine Kinase 58 CK-MB (CK-2) 1.9 Troponin T < 0.010 NT-Pro-B Natriuret Pep 589.70 H Total Protein Albumin Globulin Albumin/Globulin Ratio Urine Color Urine Appearance Urine pH Ur Specific Page Urine Protein Urine Glucose (UA) Urine Ketones Urine Blood Urine Nitrite Urine Bilirubin Urine Urobilinogen Ur Leukocyte Esterase Urine RBC Urine WBC Ur Epithelial Cells Urine Bacteria 08/12/18 08/13/18 08/13/18 18:40 00:20 06:10 WBC RBC Hgb Hct MCV MCH MCHC RDW Plt Count MPV Gran % Neutrophils % Lymphocytes % Monocytes % Eosinophils % Basophils % Lymphocytes Monocytes Platelet Estimate RBC Morphology Eosinophil Count PT INR APTT Sodium Potassium Chloride Carbon Dioxide Anion Gap BUN Creatinine Estimated GFR Random Glucose Calcium Total Bilirubin AST ALT Alkaline Phosphatase Creatine Kinase CK-MB (CK-2) 1.6 1.7 Troponin T < 0.010 < 0.010 NT-Pro-B Natriuret Pep Total Protein Albumin Globulin Albumin/Globulin Ratio Urine Color Yellow Urine Appearance Cloudy Urine pH 6.0 Ur Specific Page 1.010 Urine Protein Negative Urine Glucose (UA) Negative Urine Ketones Negative Urine Blood Small H Urine Nitrite Negative Urine Bilirubin Negative Urine Urobilinogen 0.2 Ur Leukocyte Esterase Large H Urine RBC 7 - 10 Urine WBC Too numerous to cnt Ur Epithelial Cells 0 - 2 Urine Bacteria None seen 08/13/18 08/13/18 08/13/18 06:40 06:40 07:00 WBC 4.9 RBC 4.26 L Hgb 10.9 L Hct 35.4 L MCV 83.1 MCH 25.5 L MCHC 30.8 L RDW 18.7 H Plt Count 283 MPV 9.0 Gran % Neutrophils % 67.0 Lymphocytes % Monocytes % Eosinophils % Not Reportable Basophils % Not Reportable Lymphocytes 26.0 Monocytes 6.0 Platelet Estimate Normal RBC Morphology Normal Eosinophil Count 1.0 PT INR APTT Sodium 140 Potassium 4.0 Chloride 102 Carbon Dioxide 29.0 Anion Gap 9.0 BUN 13 Creatinine 1.2 Estimated GFR > 60 Random Glucose 95 Calcium 8.8 Total Bilirubin < 0.20 L AST 19 ALT 17 Alkaline Phosphatase 80 Creatine Kinase CK-MB (CK-2) Troponin T Cancelled NT-Pro-B Natriuret Pep Total Protein 6.9 Albumin 3.3 L Globulin 3.6 Albumin/Globulin Ratio 0.9 L Urine Color Urine Appearance Urine pH Ur Specific Page Urine Protein Urine Glucose (UA) Urine Ketones Urine Blood Urine Nitrite Urine Bilirubin Urine Urobilinogen Ur Leukocyte Esterase Urine RBC Urine WBC Ur Epithelial Cells Urine Bacteria 08/13/18 23:00 WBC RBC Hgb Hct MCV MCH MCHC RDW Plt Count MPV Gran % Neutrophils % Lymphocytes % Monocytes % Eosinophils % Basophils % Lymphocytes Monocytes Platelet Estimate RBC Morphology Eosinophil Count PT INR APTT Sodium Potassium Chloride Carbon Dioxide Anion Gap BUN Creatinine Estimated GFR Random Glucose Calcium Total Bilirubin AST ALT Alkaline Phosphatase Creatine Kinase CK-MB (CK-2) Cancelled Troponin T Cancelled NT-Pro-B Natriuret Pep Total Protein Albumin Globulin Albumin/Globulin Ratio Urine Color Urine Appearance Urine pH Ur Specific Page Urine Protein Urine Glucose (UA) Urine Ketones Urine Blood Urine Nitrite Urine Bilirubin Urine Urobilinogen Ur Leukocyte Esterase Urine RBC Urine WBC Ur Epithelial Cells Urine Bacteria - Imaging and Cardiology Chest x-ray Status: Report reviewed (Xray: negative for acute changes, did show postop sternotomy, persistent bibasilar changes, multiple right rib fractures- 4-7th, with displacement. ) VTE H&P Assessment - Risk for VTE Risk for VTE: Yes Risk Level: Moderate Risk Assessment Date: 08/13/18 Risk Assessment Time: 07:50 VTE Orders Placed or Will Be Placed: Yes Plan - Detailed Diagnosis and Plan (1) Dyspnea Current Visit: Yes Status: Acute Qualifiers: Dyspnea type: unspecified Qualified Code(s): R06.00 - Dyspnea, unspecified Base Code: R06.00 - DYSPNEA, UNSPECIFIED Comment: 08/13/18: -Resolved -Per pt- he feels he was having a reaction to his cipro (taken for 3 days for UTI) -Chest xray: negative for acute changes, did show postop sternotomy, persistent bibasilar changes, multiple right rib fractures- 4-7th, with displacement. (2) UTI (urinary tract infection) Current Visit: No Status: Acute Base Code: N39.0 - URINARY TRACT INFECTION, SITE NOT SPECIFIED Comment: 08/13/18: -Pt. was taking cipro (500mg bid) started on 08/11/18 -UA in ED positive for small bld, large leuks, WBCs tntc- sent for culture -1g rocephin administered q12h IV, will change to cefdinir today for discharge (3) At risk for deep venous thrombosis Current Visit: Yes Status: Acute Base Code: Z91.89 - OTH PERSONAL RISK FACTORS, NOT ELSEWHERE CLASSIFIED Comment: 08/13/18: -At risk for DVT, decreased mobility with hospitalization -Will order prophylaxis if stay >24 hours -Nursing to encourage ambulation (4) Full code status Current Visit: Yes Status: Acute Base Code: Z78.9 - OTHER SPECIFIED HEALTH STATUS Comment: 08/13/18: -Pt. is a full code
[2018-08-13] MEDS ORDERED: ALBUTEROL HFA 8 GM INHALER INH PRN (08:15)
[2018-08-13] MEDS ORDERED: NITROGLYCERIN 0.4MG SL TABLET #25 BTL SL PRN (08:15)
--- NOTE | 2018-08-13 08:23 | Discharge Summary ---
Providers Discharge Summary Date: 08/13/18 Date of admission: 08/12/18 20:02 Expected Date of Discharge: 08/13/18 Attending physician: SHIRLEY MONGE Primary care physician: SHIRLEY MONGE Physical Exam - Vital Signs Vital Signs: Vital Signs - Last 24 Hrs Temp Pulse Pulse Resp BP BP Pulse Ox 08/13/18 03:58 98.2 F 75 18 112/66 97 08/13/18 00:00 96 H 20 137/73 100 08/12/18 21:00 86 18 08/12/18 20:30 97.9 F 86 18 152/87 86 L 08/12/18 20:10 82 16 135/81 98 08/12/18 19:23 82 16 126/76 99 08/12/18 18:09 97.7 F 94 H 20 143/84 99 - General General Appearance: Alert, Oriented x3, Cooperative, No acute distress Limitations: No limitations - Head Head exam: Atraumatic, Normocephalic, Normal inspection - Eye Eye exam: Normal appearance, PERRL, EOMI - Neck Neck exam: Normal inspection, Full ROM. negative: Tenderness - Respiratory Respiratory exam: Normal lung sounds bilaterally. negative: Accessory muscle use, Prolonged expiratory, Respiratory distress, Rhonchi, Stridor, Wheezes - Cardiovascular Cardiovascular Exam: Regular rate, Normal rhythm, Normal heart sounds - GI/Abdominal GI/Abdominal exam: Soft, Normal bowel sounds. negative: Tenderness - Extremities Extremities exam: Normal inspection, Full ROM, Normal capillary refill. negative: Tenderness - Back Back exam: Reports: Normal inspection - Neurological Neurological exam: Normal gait, Oriented X3. negative: Abnormal gait, Alert, Motor sensory deficit - Psychiatric Psychiatric exam: negative: Anxious, Depressed Hospitalization - Hospitalization Admission Diagnosis: 1. Acute Dyspnea - Problem List/Discharge Diagnosis (1) Dyspnea Current Visit: Yes Status: Acute Discharge Diagnosis: Dyspnea type: unspecified Qualified Code(s): R06.00 - Dyspnea, unspecified Base Code: R06.00 - DYSPNEA, UNSPECIFIED Comment: 08/13/18: -Resolved -Per pt- he feels he was having a reaction to his cipro (taken for 3 days for UTI) -Chest xray: negative for acute changes, did show postop sternotomy, persistent bibasilar changes, multiple right rib fractures- 4-7th, with displacement. (2) UTI (urinary tract infection) Current Visit: No Status: Acute Base Code: N39.0 - URINARY TRACT INFECTION, SITE NOT SPECIFIED Comment: 08/13/18: -Pt. was taking cipro (500mg bid) started on 08/11/18 -UA in ED positive for small bld, large leuks, WBCs tntc- sent for culture -1g rocephin administered q12h IV, will change to cefdinir today for discharge (3) At risk for deep venous thrombosis Current Visit: Yes Status: Acute Base Code: Z91.89 - OTH PERSONAL RISK FACTORS, NOT ELSEWHERE CLASSIFIED Comment: 08/13/18: -At risk for DVT, decreased mobility with hospitalization -Will order prophylaxis if stay >24 hours -Nursing to encourage ambulation (4) Full code status Current Visit: Yes Status: Acute Base Code: Z78.9 - OTHER SPECIFIED HEALTH STATUS Comment: 08/13/18: -Pt. is a full code - Hospitalization Course Hospital Course: Mr. Amato is an 82 year-old male who presented to the ED on 08/12 with c/o one-day history of mild shortness of breath. It developed that morning and had been mild. He denies fever, nausea, vomiting, or rash. He was recently diagnosed with a UTI and started cipro on 08/11. He was concerned he was having an allergic rxn to Cipro due to the fact he started it recently for a UTI. He has had Cipro in the past also with no significant issues. He did have a gonzalez catheter during the summer due to There had been no swelling, urticaria, or difficulty swallowing. His history includes: renal carcinoma and right nephrectomy, [place], 3 stents, aortic valve replacement 02/06/18 ([facility]), HTN , GERD, polyps, shingles affecting left eye, and former smoker. In the ED, his vitals were: BP 143/84, HR 94, RR 20, 97.7F, and 99% on room air. UA: small blood, large leuks, WBC- tntc. Hgb 11.2, Hct 37.3, BNP 589.7. EKG: no acute changes, unchanged from previous. Xray: negative for acute changes, did show postop sternotomy, persistent bibasilar changes, multiple right rib fractures- 4-7th, with displacement. He was admitted observation for dyspnea and IV antibiotics for UTI. 08/13/18 0730: Pt. is sitting up in bed. He states that he is eager to go home. He denies shortness of breath and he oxygen saturation is 97% on room air and he has remained on room air throughout the night. He is tolerative his IV rocephin. He denies nausea. He does state that he has been up every 1-2 hours to urinate and that burning pain with urination has improved significantly. Plan to change from rocephin to cefdinir and d/c home this morning. Pt. to f/u with PCP within 3-5 days. PCP: Dr. Monge Urology: (unknown) Cardiology: [facility] GI: Dr. Woodruff Procedures: Imaging and X-Rays 08/12/18 18:27 CHEST 2 VIEWS [RAD] Stat Cardiology Procedures 08/12/18 18:27 Nuclear Engineer NOW EKG NOW 08/12/18 22:49 Nuclear Engineer .Continuous EKG QDX2@0600 Abnormal Labs: Abnormal Lab Results 08/12/18 08/12/18 08/12/18 Range/Units 18:35 18:35 18:40 RBC (4.40-5.70) M/uL Hgb 11.2 L (14.0-18.0) gm/dl Hct 37.3 L (42.0-52.0) % MCH 25.0 L (27-33) pg MCHC 30.0 L (32-36) g/dl RDW 18.8 H (11.5-14.5) % Monocytes % 12.6 H (0-9) % Potassium 4.8 H (3.4-4.5) mmol/L Random Glucose 126 H (74-109) mg/dL Total Bilirubin (0.2-1.0) mg/dL NT-Pro-B Natriuret Pep 589.70 H (<450) pg/mL Albumin (4.0-5.0) g/dL Albumin/Globulin Ratio (1.1-1.8) Urine Blood Small H (NEGATIVE) Ur Leukocyte Esterase Large H (NEGATIVE) 08/13/18 08/13/18 Range/Units 06:40 06:40 RBC 4.26 L (4.40-5.70) M/uL Hgb 10.9 L (14.0-18.0) gm/dl Hct 35.4 L (42.0-52.0) % MCH 25.5 L (27-33) pg MCHC 30.8 L (32-36) g/dl RDW 18.7 H (11.5-14.5) % Monocytes % (0-9) % Potassium (3.4-4.5) mmol/L Random Glucose (74-109) mg/dL Total Bilirubin < 0.20 L (0.2-1.0) mg/dL NT-Pro-B Natriuret Pep (<450) pg/mL Albumin 3.3 L (4.0-5.0) g/dL Albumin/Globulin Ratio 0.9 L (1.1-1.8) Urine Blood (NEGATIVE) Ur Leukocyte Esterase (NEGATIVE) Condition at Discharge: (2) Stable Discharge Diagnosis: UTI- complicated VTE Discharge VTE Reason For No Overlap Therapy: Not Indicated (Pt. will resume normal level of activity) Discharge Medications - Discharge Medications Prescriptions: Cefdinir 300 mg PO BID #12 capsule Home Medications: Ambulatory Orders Acetaminophen 500 mg PO BID tab 12/24/16 [Last Taken 1 Day Ago ~08/11/18] Albuterol Sulfate [Proair Hfa] 1 - 2 puff IH ASDIR inhaler 12/24/16 [Last Taken 1 Day Ago ~08/11/18] Ascorbate Calcium [Vitamin C] 1,000 mg PO DAILY tab 12/24/16 [Last Taken 1 Day Ago ~08/11/18] Aspirin 81 mg PO DAILY tab.chew 12/24/16 [Last Taken 1 Day Ago ~08/11/18] Ezetimibe [Zetia] 0.5 tab PO DAILY tab 12/24/16 [Last Taken 1 Day Ago ~08/11/18 ] Metoprolol Succinate [Toprol Xl] 50 mg PO QD tab 12/24/16 [Last Taken 1 Day Ago ~08/11/18] Nitroglycerin 0.4MG [Nitrostat 0.4MG] 0.4 mg SL ASDIR tab 12/24/16 [Last Taken 1 Day Ago ~08/11/18] [place]-3 Acid Ethyl Esters [Lovaza] 1,000 mg PO BID cap 12/24/16 [Last Taken 1 Day Ago ~08/11/18] Rosuvastatin Calcium [Crestor] 5 mg PO QD tab 12/24/16 [Last Taken 1 Day Ago ~ 08/11/18] Ubidecarenone [Co Q-10] 100 mg PO DAILY cap 12/24/16 [Last Taken 1 Day Ago ~] Cholecalciferol (Vitamin D3) [Vitamin D3] 5,000 unit PO DAILY 09/09/17 [Last Taken 1 Day Ago ~08/11/18] Cefdinir 300 mg PO BID #12 capsule 08/13/18 [Last Taken Unknown] Discharge Plan - Discharge Instructions Activity at Discharge: Resume Usual Activities As Tolerated Diet at Discharge: Regular Diet Additional Instructions: Start cefdinir 300mg capsule twice daily- first dose tonight at 7pm. Take with food. Follow up with your PCP within 3-5 days. Return to the ED if shortness of breath occurs again, if symptoms worsen, or if you experience any chest pain Quality Measures - Quality Measures Quality Measures: Advance Directives, Documentation of Current Medications in Medical Record, Elder Maltreatment Screen and Follow-Up Plan, Screening for High Blood Pressure and F/U Documented - Current Medications Quality Measure: Measure #130: Documentation of Current Medications Documentation of Current Medications: <Current Medications Documented/Reviewed> [[id number]] - Blood Pressure Screening Quality Measure: Screening for High Blood Pressure and Follow-Up Documented Does Patient Have Any of the Following: Active Dx of HTN Blood Pressure Classification: Pre-Hypertensive BP Reading Systolic Measurement: 135 Diastolic Measurement: 81 Screening for High Blood Pressure: Patient Exclusion, Hx of HTN [G9744] - Advance Directives Quality Measure: Measure #47: Care Plan Advance Directives Established: Yes (DR. Monge) Advance Directives Information Provided To Patient: No Advance Directives on File: No Living Will: No Power of Tire Man: No Advance Care Planning: <Care Plan/Decision Maker Documented; Discussed & Documented> [1124F] - Elder Abuse Suspicion Index Screening: Elder Abuse Suspicion Index Screening Rely on people for bathing, dressing, shopping, banking, etc: No Prevented from getting food, clothes, medication, etc: No Made to feel shamed or threatened by someone: No Forced to sign papers or use money against will: No Feel afraid, touched in ways not wanted or hurt physically: No Poor eye contact, withdrawn, malnourished, cuts or bruises: No Screening Result: Negative result EASI Reference Information: Swetha CONKLIN, Artie C, Julienne D, Anna Kramer.Development and validation of a tool to assist physicians identification of elder abuse: The Elder Abuse Suspicion Index (EASI ). Journal of Elder Abuse and Neglect, 2008; 20 (3): 276-300. - Elder Maltreatment Screen Quality Measures: Elder Maltreatment Screen and Follow-Up Plan Elder Maltreatment Screen: <Negative, No Follow-Up Plan Required> [G8734]
[2018-08-13] MEDS ORDERED: ROSUVASTATIN CALCIUM 5 MG PO SCH (10:00)
[2018-08-13] MEDS ORDERED: ASPIRIN 325 MG TAB ENTERIC-COATED PO SCH (10:00)
[2018-08-13] MEDS ORDERED: UBIDECARENONE 100 MG PO SCH (10:00)
[2018-08-13] MEDS ORDERED: CEFDINIR 300 MG CAPSULE PO SCH (22:00)
== END 2018-08-13 10:00 | disposition home or self-care (01) ==
LOC: ER 18:08 → MEDSURG 20:02
PROVIDERS: ADMIT Internal Medicine; ATTEND Internal Medicine
DX: R06.00 Dyspnea, unspecified (principal); N39.0 Urinary tract infection, site not specified; I25.2 Old myocardial infarction; I10 Essential (primary) hypertension; K21.9 Gastro-esophageal reflux disease without esophagitis; N40.0 Benign prostatic hyperplasia without lower urinary tract symptoms; Z85.528 Personal history of other malignant neoplasm of kidney; Z95.5 Presence of coronary angioplasty implant and graft; Z87.891 Personal history of nicotine dependence; Z95.4 Presence of other heart-valve replacement
CPT/HCPCS: 71046; 80048; 80053; 81001; 82550; 82553; 83880; 84484; 85025; 85027; 85610; 85730; 93005; 93010; 96365; 96366; 99217; 99285

== ENCOUNTER 2019-08-02 09:19 | Day surgery (SDC) | payer MEDICARE, BC, OTHER ==
[~2019-08-02 09:19] MED LIST: ACETAMINOPHEN 1,000 MG/100 ML BTL IVPB ONE; CLINDAMYCIN 600MG/50ML PREMIX 600 MG/50 ML BAG IVPB ONE
[2019-08-02] MEDS ORDERED: ONDANSETRON HCL IV 4 MG/2 ML VIAL IVP ONE (09:20)
[2019-08-02] MEDS ORDERED: FENTANYL PF 100MCG/2ML VIAL IV ONE (09:20)
[2019-08-02] MEDS ORDERED: MIDAZOLAM HCL 2MG/2ML VIAL IV ONE (09:20)
[2019-08-02] MEDS ORDERED: PROPOFOL 10 MG/ML VIAL IV ONE (09:20)
[2019-08-02] MEDS ORDERED: DEXAMETHASONE 4 MG/ML 1ML VIAL IVP ONE (09:20)
[2019-08-02] MEDS ORDERED: SEVOFLURANE 250 ML INH ONE (09:20)
[2019-08-02] MEDS ORDERED: LIDOCAINE 2% MDV (20MG/ML) 20ML VIAL IV ONE (09:20)
[2019-08-02 09:29] LABS: ABSOLUTE NEUTROPHIL COUNT 4.47; BASO % 0.3 % (0-6); EOS % 1.9 % (0-6); GRAN % 59.6 % (47-80); HEMATOCRIT 47.4 % (42.0-52.0); HEMOGLOBIN 15.3 gm/dl (14.0-18.0); LYMPH % 30.7 % (16-45); MEAN CELL VOLUME 92.9 fl (81-97); MEAN CORPUSCULAR HGB CONC 32.3 g/dl (32-36); MEAN PLATELET VOLUME 9.1 fl (7.4-10.4); MONO % 7.5 % (0-9); PLATELET COUNT 214 K/uL (130-400); RED CELL DISTRIBUTION WIDTH 14.9 % (11.5-14.5); WHITE BLOOD COUNT W/O DIFF 7.5 K/uL (4.2-12.2)
[2019-08-02 09:41] LABS: CREATININE 1.5 mg/dL (0.7-1.2)
[2019-08-02] MEDS ORDERED: RINGERS SOLUTION,LACTATED 1,000 ML IV ONE (09:50)
[2019-08-02] MEDS ORDERED: BUPIVACAINE 0.25% W/EPI MPF 30ML VIAL SQ ONE (10:45)
--- NOTE | 2019-08-03 08:00 | Operative Note ---
DATE OF SURGERY: 08/02/2019 SURGEON: Ángel Beard DO PREOPERATIVE DIAGNOSIS: Perianal mass. POSTOPERATIVE DIAGNOSIS: Perianal mass. OPERATION: Excision of perianal mass measuring 3 x 2 cm into the subcu. INDICATION: The patient is an 83-year-old male who has noticed a mass in the anterior aspect of his anus and the juncture of his scrotum. In the peroneal body, he had a firm mass noted. There was nothing clear on rectal exam. We did discuss excision. Risks, benefits, and alternatives were discussed. Risks include bleeding, infection, fistula formation, need for wound care. He understood this fully. Thereafter, consent was signed and questions answered. PROCEDURE: The patient was taken to the operating room and placed in a supine position. General anesthesia was administered per the department of anesthesia. The patient was rotated into the lithotomy position. His perineal region was prepped and draped in the sterile fashion. In lithotomy, the mass was located at about the 12-o'clock position. This perianal area was anesthetized with a total of 10 mL of 0.25% Sensorcaine with epinephrine. An elliptical incision was made. This was carried down to the subcutaneous tissue around the perianal region and excised a 2 x 2 cm mass. This wound was then irrigated and closed with 3-0 nylon. The wound was then packed with iodoform. There was no obvious fistula noted. The patient tolerated the procedure well. Final pathology pending. [facility]
== END 2019-08-02 11:46 | disposition home or self-care (01) ==
LOC: SUR 09:19
PROVIDERS: ATTEND Surgery
DX: K61.0 Anal abscess (principal); E78.00 Pure hypercholesterolemia, unspecified; N40.0 Benign prostatic hyperplasia without lower urinary tract symptoms; I48.91 Unspecified atrial fibrillation; I25.2 Old myocardial infarction; I35.9 Nonrheumatic aortic valve disorder, unspecified; Z90.5 Acquired absence of kidney; Z95.5 Presence of coronary angioplasty implant and graft
CPT/HCPCS: 80048; 85025; J2405; J7120